=== PATIENT | male | born 1980 | race Caucasian/White ===

== ENCOUNTER 2018-04-25 09:55 | Inpatient (IN) ==
[2018-04-25] MEDS ORDERED: QUELICIN ONE (09:57)
--- NOTE | 2018-04-25 10:05 | PROVIDER DOCUMENTATION ---
HPI-General Adult - General Stated Complaint: UNRESPONSIVE Time Seen by Provider: 04/25/18 09:59 Source: patient Allergies/Adverse Reactions: Patient Allergies Allergy/AdvReac Type Severity Reaction Status Date / Time No Known Allergies Allergy Verified 02/11/18 02:33 Home Medications: Home Medication List Medication Instructions Recorded Confirmed Last Taken Type Folic Acid 1 mg PO DAILY 02/11/18 02/11/18 02/10/18 08:00 History Furosemide [Lasix] 40 mg PO DAILY 02/11/18 02/11/18 02/10/18 07:00 History Nadolol 20 mg PO DAILY 02/11/18 02/11/18 02/10/18 08:00 History Spironolactone 50 mg PO DAILY 02/11/18 02/11/18 02/10/18 08:00 History Thiamine HCl 100 mg PO DAILY 02/11/18 02/11/18 02/10/18 08:00 History Cephalexin [Keflex] 500 mg PO Q8H #30 cap 02/25/18 Unknown Rx Lactulose 30 ml PO TID udc 02/25/18 Unknown Rx Past History - Adult - PAST MEDICAL HISTORY-ADULT Major Childhood Illnesses: reports: denies history Cardiovascular: reports: denies history Respiratory: reports: denies history Gastrointestinal: reports: hepatitis (C) Obstetrical/Gynecological: reports: denies history Genitourinary: reports: denies history Musculoskeletal: reports: denies history Neurological: reports: denies history Endocrine/Immune: reports: denies history Other Conditions: reports: denies history - PRIOR SURGERIES/PROCEDURES Surgical/Procedure History: reports: reviewed, not pertinent - IMMUNIZATION STATUS Childhood Immunizations: See Nurse Assessment Flu Vaccine: See Nurse Assessment - FAMILY HISTORY Family History: reviewed, not pertinent Progress - PLAN OF CARE/RESULTS Progress/Plan/Lab Results: Orders Category Date Time Status ABG [RESP] Stat Lab 04/25/18 10:01 Ordered ALCOHOL BLOOD Stat Lab 04/25/18 10:01 Uncollected AMMONIA [CHEM] Stat Lab 04/25/18 10:00 Uncollected CBC WITH ELECTRONIC DIFF [HEME] Stat Lab 04/25/18 10:00 Uncollected CK PROFILE [SP CHEM] Stat Lab 04/25/18 10:01 Uncollected CMP [COMPREHENSIVE METABOLIC PANEL] [CHEM] Stat Lab 04/25/18 10:00 Uncollected TROPONIN T Stat Lab 04/25/18 10:02 Uncollected UA [URINALYSIS W/POSS RFLX CULT] [URINALYSIS] Stat Lab 04/25/18 10:01 Uncollected URINE DRUG SCREEN Stat Lab 04/25/18 10:00 Uncollected
[2018-04-25] MEDS ORDERED: NS 1,000 ML IV ONE ×3 (10:17→12:05)
[2018-04-25 10:33] LABS: BASO# 0.03 X1000 (0.0-0.2); BASO% 0.6 % (0.0-0.8); EOS% 1.9 % (0.0-10.0); HEMATOCRIT 17.7 % (42.0-52.0); HEMOGLOBIN 5.6 g/dL (14.0-18.0); IMM GRAN# 0.04 X1000 (0.0-0.04); IMM GRAN% 0.8 % (0.0-0.5); LYMPH# 0.92 X1000 (1.2-3.4); LYMPH% 17.7 % (20.5-51.1); MCH 37.8 PG (27-31); MCHC 31.6 g/dL (33-37); MCV 119.6 FL (81-99); MONO# 0.51 X1000 (0.11-0.59); MONO% 9.8 % (1.7-9.3); NEUT# 3.61 X1000 (1.4-6.5); NEUT% 69.2 % (42.2-75.2); PLT 74 X1000 (130-400); RBC 1.48 XMIL (4.7-6.1); RDW 13.9 % (11.5-14.5); WBC 5.21 X1000 (4.8-10.8)
[2018-04-25 10:36] LABS: ALLEN TEST NO; BLOOD TYPE ARTERIAL; HCO3-(ACT) 20.3 mmoll (20.0-26.0); METHB 1.4 % (0.0-1.5); O2(CT) 9.1 mL/dL (15.0-23.0); O2HB 97.2 % (95.0-99.0); PCO2(98.6) 25 mmHg (35-45); PO2(98.6) 229 mmHg (60-100); SAMPLE BLOOD; SAO2 102.1 % (95.0-100.0); SRATE 16 BPM; THB 6.2 g/dL (11.5-17.4); TVOL 550 mL; pH(98.6) 7.45 (7.35-7.45)
[2018-04-25 10:37] LABS: MODALITY VENTILATOR
[2018-04-25 10:40] LABS: ALB/GLOB RATIO 0.8; ALBUMIN 2.5 g/dL (3.5-5.0); CALCIUM 8.4 mg/dL (8.8-10.2); CREATININE 2.4 mg/dL (0.7-1.2); TOTAL BILIRUBIN 18.26 mg/dL (0.20-1.00); TOTAL PROTEIN 5.5 g/dL (6.3-8.3)
[2018-04-25] MEDS ORDERED: ZOSYN 3.375 GM in NS 50 ML IV ONE (10:43)
[2018-04-25] MEDS ORDERED: VANCOMYCIN 1 GM/NS 1 GM/250 ML IVPB IV ONE (10:43)
[2018-04-25 10:48] LABS: BILIRUBIN URINE SMALL (NEGATIVE); BLOOD URINE TRACE (NEGATIVE); COLOR YELLOW; GLUCOSE URINE NEGATIVE (NEGATIVE); KETONE URINE NEGATIVE (NEGATIVE); LEUKOCYTES URINE NEGATIVE (NEGATIVE); NITRITE URINE NEGATIVE (NEGATIVE); PH URINE 5.5; PROTEIN URINE NEGATIVE (NEGATIVE); SP GRAVITY URINE 1.011; TURBIDITY URINE CLEAR (CLEAR); UR EPITHELIAL CELLS <10 /HPF (<10); URINE BACTERIA NEGATIVE /HPF; URINE RBC <10 /HPF (<10); URINE WBC <10 /HPF (<10); UROBILINOGEN URINE 8 mg/dL (NORMAL)
[2018-04-25 10:55] LABS: URINE SOURCE CATH
--- NOTE | 2018-04-25 11:06 | Diag Imaging Result Doc PS360 ---
EXAM: CHEST-PORTABLE 04/25/2018 HISTORY: intubated patient TECHNIQUE: Portable chest and abdomen for NG tube placement and endotracheal tube placement. COMMENT: The endotracheal tube tip is at the thoracic inlet and the NG tube tip is in the distal stomach. There is some atelectasis in the right lower lobe. There is gaseous dilatation of multiple small bowel loops as well as a fairly large amount of stool seen in the visualized portion of the colon. IMPRESSION: Endotracheal and NG tubes in appropriate locations. Electronically signed by Fred Kirkpatrick 04/25/2018 11:04 AM
[2018-04-25] MEDS ORDERED: PROTONIX IV ONE (11:18)
[2018-04-25] MEDS ORDERED: SANDOSTATIN IV ONE (11:18)
[2018-04-25 11:24] LABS: CK INDEX 0.6 (0.0-2.5); CK-MB 2.3 ng/mL (0.0-5.0)
[2018-04-25] MEDS: DIPRIVAN 1% 1,000 MG/100 ML BOTTLE IV SCH ×2 (11:27→19:59)
[2018-04-25 11:56] LABS: INR 2.63
[2018-04-25 11:57] LABS: PTT 60.6 Seconds (22.3-41.8)
[2018-04-25 11:58] LABS: UR AMPHETAMINES QUAL NONE DETECTED (NONE DETECT); UR BARBITUATES QUAL NONE DETECTED (NONE DETECT); UR BENZODIAZEPIN QUAL NONE DETECTED (NONE DETECT); UR CANNABINOIDS QUAL NONE DETECTED (NONE DETECT); UR COCAINE QUAL NONE DETECTED (NONE DETECT); UR METHADONE QUAL NONE DETECTED (NONE DETECT); UR OPIATES QUAL NONE DETECTED (NONE DETECT); UR OXYCODONE QUAL NONE DETECTED (NONE DETECT); UR PCP QUAL NONE DETECTED (NONE DETECT)
--- NOTE | 2018-04-25 12:01 | Diag Imaging Result Doc PS360 ---
EXAM: CT HEAD W/O CONTRAST 04/25/2018 HISTORY: unresponsive TECHNIQUE: This exam was performed using automated exposure control, adjustment of mA or kV according to patient size, and/or use of iterative reconstruction technique. COMMENT: There is no evidence of mass effect, bleed, abnormal extra-axial fluid collection, or hydrocephalus. The visualized paranasal sinuses are clear. The calvarium is intact. Compared to the previous examination of 02/11/2018 there has been no significant change in the appearance the brain. IMPRESSION: No evidence of acute intracranial disease. Electronically signed by Fred Kirkpatrick 04/25/2018 11:59 AM
[2018-04-25] MEDS ORDERED: LACTULOSE NG ONE (12:04)
[2018-04-25] MEDS ORDERED: D50W SYRINGE IV PRN (12:11)
[2018-04-25] MEDS ORDERED: XIFAXAN NG SCH (12:15)
[2018-04-25] MEDS ORDERED: VANCOMYCIN IV PER PHARMACY MISC SCH (12:15)
[2018-04-25] MEDS ORDERED: PROTONIX ONE (12:18)
[2018-04-25] MEDS ORDERED: LACTULOSE PO SCH (13:00)
[2018-04-25 13:15] LABS: LYMPHS 22 % (21-51); MONO 10 % (1-9); SEGS 68 % (42-75)
[2018-04-25 13:16] LABS: ANISOCYTOSIS 2+; HYPOCHROM 1+; POIKILOCYTOSIS 2+
--- NOTE | 2018-04-25 13:17 | HISTORY AND PHYSICAL ---
HISTORY OF PRESENT ILLNESS: This is a 37-year-old, who was found unresponsive. He lives with his mother. He was last in the hospital on 02/11/2018 to 02/26/2018. This is a 37 year old, who has recently been admitted to the hospital on 12/10/2017 to 12/15/2017 and then again on 02/11/2018 to I think 02/26/2018. The last time he was found unresponsive, as well as being found unresponsive at this time. He was brought to the emergency room where he had to be intubated in respiratory failure. He has been treated with cirrhosis of the liver, alcoholic hepatitis, upper gastrointestinal bleeding secondary to variceal bleeds. He has had banding x4, hepatitis C, jaundice and electrolyte abnormalities. Since last admission, his mother thinks he has lost about 25 pounds, but he was eating. He was a no code during that admission. They did not expect him to make it, but then he has expressed his wishes to be made a no-code on this admission. His mother would like to make him a DNR. He was doing okay yesterday. He has not felt good for the last couple weeks, so he apparently was skipping some of his medication trying to figure out which one was making him feel bad, but she did not report any history of fever, chills or chest pain, GI bleeding or dark stools. Did notice any increased swelling in his belly or in his extremities. Came to the emergency room where he was intubated. Did do a CT of his head. Did not see any sign of bleed. Once again reviewed. PAST MEDICAL HISTORY: 1. History of upper gastrointestinal bleeding secondary to variceal bleeding. He had banding in December of 2017; apparently has had this four different times. 2. Alcoholic hepatitis. 3. Cirrhosis of the liver. 4. Hepatitis C. 5. Anemia. 6. Poor medical compliance. PAST SURGICAL HISTORY: Had wisdom teeth extracted. SOCIAL HISTORY: Patient has long history of long-standing alcohol dependence. His mother reports that he has not drank in 2 years, reports that before that occasional marijuana, and he was positive on his drug screen and past admissions. FAMILY HISTORY: Mother did not describe any significant cardiac or renal or medical issues. ALLERGIES: No known drug allergies. PRESENT MEDICATIONS: I believe he is on: 1. Folic acid 1 mg a day. 2. Lasix 40 mg a day. 3. Nadolol 20 mg a day. 4. Spironolactone 50 mg a day. 5. Thiamine 100 mg daily. REVIEW OF SYSTEMS: General: Really not obtained from patient, but the mother. HEENT: Did not describe any change in vision or hearing acuity. Respiratory: No increased work of breathing or dyspnea, orthopnea that she had noted. Cardiovascular: No chest pain or tachy palpitation. Gastrointestinal and Genitourinary: No gross hematuria, dysuria. No hematemesis. Endocrinologic and Hematologic: No significant history. PHYSICAL EXAMINATION: VITAL SIGNS: Temperature 98.2 degrees, pulse 95, respirations 14, blood pressure 130/64. EYES: Pupils are equal and round. LUNGS: Clear in all lung ellis. CARDIOVASCULAR EXAM: Regular rhythm and rate without murmur or S3. He is intubated, unresponsive. His pupils are sluggish, but reactive; they are about 3 mm and equal. No distended neck veins. ABDOMEN: Soft. There is stria on the lower sides of his abdomen. EXTREMITIES: No pedal edema. NEUROLOGIC: He is sedated at the present time. LABS: White count 5210, hematocrit is 17, hemoglobin 5.6, platelet count 74,000. Sodium 131, potassium 5.0, chloride 97, BUN 39, creatinine 2.4. Ammonia level 223. PT is 30, PTT is 60. Albumin 2.5. Urine drug screen was negative for opiates, oxycodone, methadone, barbiturates, phencyclidine, amphetamines, benzodiazepines, cocaine, cannabinoids. Ethanol level (none detected). Urinalysis unremarkable. Blood gases: The pH is 7.45, pCO2 25, PO2 is 229, O2 saturations 100%; this is on the ventilator with assist control of 16, FiO2 60%, tidal volume 550, PEEP was 5. X-RAYS: Chest x-ray: Endotracheal and nasogastric tube in appropriate locations, otherwise unremarkable. There is some atelectasis in the right lower lobe. Gaseous distention of multiple small bowel loops. Large amount of stool seen in the visualized portion of the colon. CT of the head with no evidence of acute intracranial bleed. ASSESSMENT/PLAN: Unresponsive, lethargic. Ammonia level is high. No evidence for infection. His abdomen appears soft, but he is sedated. We will cover him with some empiric antibiotics for possible acute or subacute peritonitis and sepsis. He has underlying alcoholic cirrhosis. He has had significant portal hypertension with banding in the past. No sign of bleeding at this time, but hemoglobin and hematocrit very low. So, we will give him 2 units of packed red blood cells. We will give him some fresh frozen because his prothrombin time is elevated. Significant liver dysfunction based on his pro time and his albumin. Prognosis is very poor. Mother understands. He is to be made a do not resuscitate. We will ask Dr. Manrique and Gastroenterology to help follow along. We will give him some lactulose in the nasogastric tube, Rifaximin 550 mg twice a day in the tube. We will run normal saline 85 mL an hour. We will start him on some octreotide that will be run at 10 mL an hour. Concentration is 50 mcg/mL, so that will be 500 mcg every hour. cc: Gera Woodward MD
--- NOTE | 2018-04-25 13:33 | PROVIDER DOCUMENTATION ---
This chart was entered by Chano Calvert Scribe, acting as scribe for Bautista Batres MD. HPI-Critical Care - General Chief Complaint: Unresponsive Stated Complaint: UNRESPONSIVE Time Seen by Provider: 04/25/18 09:59 Patient arrived via EMS?: Yes Source: patient, [facility] ([facility] Allergies/Adverse Reactions: Allergies Allergy/AdvReac Type Severity Reaction Status Date / Time No Known Allergies Allergy Verified 02/11/18 02:33 Home Medications: Home Medication List Medication Instructions Recorded Confirmed Last Taken Type Folic Acid 1 mg PO DAILY 02/11/18 02/11/18 02/10/18 08:00 History Furosemide [Lasix] 40 mg PO DAILY 02/11/18 02/11/18 02/10/18 07:00 History Nadolol 20 mg PO DAILY 02/11/18 02/11/18 02/10/18 08:00 History Spironolactone 50 mg PO DAILY 02/11/18 02/11/18 02/10/18 08:00 History Thiamine HCl 100 mg PO DAILY 02/11/18 02/11/18 02/10/18 08:00 History Cephalexin [Keflex] 500 mg PO Q8H #30 cap 02/25/18 Unknown Rx Lactulose 30 ml PO TID udc 02/25/18 Unknown Rx - History of Present Illness-Critical Care Nature of Presenting Problem: 37 yom [facility] by [facility] with cc of unresponsive since 0430 this am per family members. 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 Pt family members told EMS that he was a DNR but there is no paperwork. EMS gave pt 1mg narcan with no relief and they were unable to obtain a BP they report he was postictal on finding him. Hx of Cirrhosis of the Liver pt is jaundice on arrival. Review of Systems - Adult - REVIEW OF SYSTEMS - ADULT ROS:: unobtainable per condition Constitutional: reports: see HPI, other (unresponsive) Neurological: reports: see HPI, other (unresponsive) Past History - Adult - PAST MEDICAL HISTORY-ADULT Review of Records: reports: Old Records Reviewed, Nursing Assessment Review, Medications Reviewed Gastrointestinal: reports: hepatitis (C) Other Conditions: reports: denies history - PRIOR SURGERIES/PROCEDURES Surgical/Procedure History: reports: reviewed, not pertinent - IMMUNIZATION STATUS Childhood Immunizations: See Nurse Assessment Flu Vaccine: See Nurse Assessment - FAMILY HISTORY Family History: reviewed, not pertinent Physical Exam-General - PHYSICAL EXAM-ADULT Initial Vital Signs Reviewed: Yes (Pt BP was 129/56 HR 72 O2 sat with 15lpm high flow oxygen was 100) - CONSTITUTIONAL General Appearance: severe distress, other (unresponsive). negative: appears well, alert - EYES Eyes: scleral icterus, other (Doll eyes and no cranial reflexes). negative: PERRL/EOMI - HEAD, EARS, NOSE, MOUTH & THROAT HENMT: other (Jaws clenched) - NECK Neck: supple. negative: trachial deviation, tender lateral, tender midline, thyromegaly - RESPIRATORY Respiratory: decreased breath sounds - CARDIOVASCULAR Cardiovascular: normal peripheral pulses, regular rate, rhythm - GASTROINTESTINAL (ABDOMEN) Abdominal Exam: normal bowel sounds, soft, hernia (right inguinal, reducible) - GENITOURINARY Rectal Exam: normal rectal tone, black stool - MUSCULOSKELETAL Extremity: no pedal edema. negative: slow capillary refill, swelling Peripheral Pulses: radial (R): 2+, radial (L): 2+, carotid (R): 2+, carotid (L) : 2+, femoral (R): 2+, femoral (L): 2+, dorsalis-pedis (R): 2+, dorsalis-pedis ( L): 2+ DTR: ankle (R): 2+, ankle (L): 2+ - SKIN Integumentary: ecchymosis (bilateral knees), jaundice. negative: normal color, normal turgor, warm/dry (Cold to touch) - NEUROLOGIC Neurologic: other (unresponsive). negative: grossly normal - PSYCHIATRIC Psych/Mental Status: other (unresponsive) Progress - PLAN OF CARE/RESULTS Progress/Plan/Lab Results: Vital Signs - 8 hr 04/25/18 10:02 04/25/18 10:17 04/25/18 10:20 Temperature 92.8 F L Pulse Rate 86 72 74 Respiratory Rate 16 16 16 Blood Pressure 129/56 137/74 O2 Sat by Pulse Oximetry 100 100 04/25/18 10:22 04/25/18 10:30 04/25/18 10:35 Temperature Pulse Rate 77 83 85 Respiratory Rate 16 13 Blood Pressure 128/79 103/82 O2 Sat by Pulse Oximetry 100 100 04/25/18 10:36 04/25/18 10:38 04/25/18 10:40 Temperature Pulse Rate 87 86 86 Respiratory Rate 20 Blood Pressure 104/50 82/65 O2 Sat by Pulse Oximetry 100 100 04/25/18 10:41 04/25/18 10:43 04/25/18 10:48 Temperature Pulse Rate 114 H 87 69 Respiratory Rate Blood Pressure 72/56 123/81 96/79 O2 Sat by Pulse Oximetry 04/25/18 10:50 04/25/18 10:52 04/25/18 10:58 Temperature Pulse Rate 74 85 86 Respiratory Rate 14 Blood Pressure 113/69 73/68 O2 Sat by Pulse Oximetry 100 100 04/25/18 11:00 04/25/18 11:01 04/25/18 11:03 Temperature Pulse Rate 86 88 87 Respiratory Rate 14 Blood Pressure 116/64 117/73 O2 Sat by Pulse Oximetry 100 100 100 04/25/18 11:08 04/25/18 11:10 04/25/18 11:12 Temperature Pulse Rate 89 87 93 H Respiratory Rate 17 17 24 Blood Pressure 87/58 116/70 O2 Sat by Pulse Oximetry 100 100 97 04/25/18 11:55 04/25/18 11:56 04/25/18 11:58 Temperature Pulse Rate 89 92 H 93 H Respiratory Rate 13 14 13 Blood Pressure 128/94 100/52 O2 Sat by Pulse Oximetry 100 100 04/25/18 12:00 04/25/18 12:02 04/25/18 12:05 Temperature Pulse Rate 94 H 95 H 92 H Respiratory Rate 15 14 13 Blood Pressure 120/78 110/56 O2 Sat by Pulse Oximetry 100 100 100 04/25/18 12:08 04/25/18 12:09 04/25/18 12:10 Temperature Pulse Rate 95 H 94 H 89 Respiratory Rate 14 14 14 Blood Pressure 130/64 O2 Sat by Pulse Oximetry 100 100 100 04/25/18 12:12 04/25/18 12:13 04/25/18 12:16 Temperature Pulse Rate Respiratory Rate Blood Pressure 79/68 83/63 96/63 O2 Sat by Pulse Oximetry 100 100 100 04/25/18 12:17 04/25/18 12:20 04/25/18 12:22 Temperature Pulse Rate 95 H Respiratory Rate 13 Blood Pressure 99/65 119/65 O2 Sat by Pulse Oximetry 100 100 100 04/25/18 12:27 04/25/18 12:30 04/25/18 12:32 Temperature Pulse Rate 98 H 98 H 99 H Respiratory Rate 13 12 14 Blood Pressure 109/69 105/56 O2 Sat by Pulse Oximetry 100 100 100 04/25/18 12:34 04/25/18 12:37 04/25/18 12:40 Temperature Pulse Rate 99 H 97 H 100 H Respiratory Rate 12 13 15 Blood Pressure 107/59 106/62 O2 Sat by Pulse Oximetry 100 100 100 Laboratory Results - last 24 hr 04/25/18 04/25/18 04/25/18 10:00 10:00 10:00 WBC 5.21 RBC 1.48 L Hgb 5.6 L* Hct 17.7 L MCV 119.6 H MCH 37.8 H MCHC 31.6 L RDW Std Deviation 13.9 Plt Count 74 L MPV 10.0 Immature Gran % (Auto) 0.8 H Neut % (Auto) 69.2 Lymph % (Auto) 17.7 L [place] % (Auto) 9.8 H Eos % (Auto) 1.9 Baso % (Auto) 0.6 Immature Gran # (Auto) 0.04 Neut # (Auto) 3.61 Lymph # (Auto) 0.92 L [place] # (Auto) 0.51 Eos # (Auto) 0.10 Baso # (Auto) 0.03 Segmented Neutrophils 68 Lymphocytes 22 Monocytes 10 H Hypochromia 1+ Poikilocytosis 2+ Anisocytosis 2+ Macrocytosis 3+ PT INR PTT (Actin FS) Specimen Type Sample Site pH pCO2 pO2 HCO3 Base Excess Oxyhemoglobin ABG O2 Sat (Calculated) ABG O2 Saturation ABG Carboxyhemoglobin ABG Methemoglobin Gera Test A-a O2 Difference Total Hemoglobin Lactate Blood Gas Modality Vent Mode Spontaneous Rate FiO2 % Tidal Volume PEEP Sodium 131 L Potassium 5.0 Chloride 97 L Carbon Dioxide 18 L Anion Gap 16 BUN 39 H Creatinine 2.4 H Estimated GFR/1.73 m2 31 BUN/Creatinine Ratio 16 Glucose 77 POC Glucose Calculated Osmolality 271 Calcium 8.4 L Magnesium Total Bilirubin 18.26 H AST 63 H ALT 35 Alkaline Phosphatase 133 H Ammonia Creatine Kinase 402 H Creatine Kinase Index 0.6 CK-MB (CK-2) 2.30 Troponin T Total Protein 5.5 L Albumin 2.5 L Globulin 3.0 Albumin/Globulin Ratio 0.8 Plasma Lactate Urine Source Urine Color Urine Turbidity Urine pH Ur Specific [place] Urine Protein Ur Glucose (Stick) Ur Ketones (Stick) Urine Blood Urine Nitrite Urine Bilirubin Urobilinogen Dipstick Urine Leukocytes Urine WBC (Auto) Urine RBC (Auto) U Epithel Cells (Auto) Urine Bacteria (Auto) Urine Opiates Screen Ur Oxycodone Screen Ur Methadone, Qual Ur Barbiturates Screen Ur Phencyclidine Scrn Ur Amphetamines Screen U Benzodiazepines Scrn Urine Cocaine Screen U Cannabinoids Screen Plasma/Serum Ethyl Alc Blood Type Antibody Screen Crossmatch 04/25/18 04/25/18 04/25/18 10:00 10:00 10:00 WBC RBC Hgb Hct MCV MCH MCHC RDW Std Deviation Plt Count MPV Immature Gran % (Auto) Neut % (Auto) Lymph % (Auto) [place] % (Auto) Eos % (Auto) Baso % (Auto) Immature Gran # (Auto) Neut # (Auto) Lymph # (Auto) [place] # (Auto) Eos # (Auto) Baso # (Auto) Segmented Neutrophils Lymphocytes Monocytes Hypochromia Poikilocytosis Anisocytosis Macrocytosis PT INR PTT (Actin FS) Specimen Type Sample Site pH pCO2 pO2 HCO3 Base Excess Oxyhemoglobin ABG O2 Sat (Calculated) ABG O2 Saturation ABG Carboxyhemoglobin ABG Methemoglobin Gera Test A-a O2 Difference Total Hemoglobin Lactate Blood Gas Modality Vent Mode Spontaneous Rate FiO2 % Tidal Volume PEEP Sodium Potassium Chloride Carbon Dioxide Anion Gap BUN Creatinine Estimated GFR/1.73 m2 BUN/Creatinine Ratio Glucose POC Glucose Calculated Osmolality Calcium Magnesium Total Bilirubin AST ALT Alkaline Phosphatase Ammonia Creatine Kinase Creatine Kinase Index CK-MB (CK-2) Troponin T < 0.010 Total Protein Albumin Globulin Albumin/Globulin Ratio Plasma Lactate 5.2 H Urine Source Urine Color Urine Turbidity Urine pH Ur Specific [place] Urine Protein Ur Glucose (Stick) Ur Ketones (Stick) Urine Blood Urine Nitrite Urine Bilirubin Urobilinogen Dipstick Urine Leukocytes Urine WBC (Auto) Urine RBC (Auto) U Epithel Cells (Auto) Urine Bacteria (Auto) Urine Opiates Screen Ur Oxycodone Screen Ur Methadone, Qual Ur Barbiturates Screen Ur Phencyclidine Scrn Ur Amphetamines Screen U Benzodiazepines Scrn Urine Cocaine Screen U Cannabinoids Screen Plasma/Serum Ethyl Alc Blood Type Antibody Screen Crossmatch 04/25/18 04/25/18 04/25/18 10:00 10:00 10:18 WBC RBC Hgb Hct MCV MCH MCHC RDW Std Deviation Plt Count MPV Immature Gran % (Auto) Neut % (Auto) Lymph % (Auto) [place] % (Auto) Eos % (Auto) Baso % (Auto) Immature Gran # (Auto) Neut # (Auto) Lymph # (Auto) [place] # (Auto) Eos # (Auto) Baso # (Auto) Segmented Neutrophils Lymphocytes Monocytes Hypochromia Poikilocytosis Anisocytosis Macrocytosis PT 30.0 H INR 2.63 PTT (Actin FS) 60.6 H Specimen Type Sample Site pH pCO2 pO2 HCO3 Base Excess Oxyhemoglobin ABG O2 Sat (Calculated) ABG O2 Saturation ABG Carboxyhemoglobin ABG Methemoglobin Gera Test A-a O2 Difference Total Hemoglobin Lactate Blood Gas Modality Vent Mode Spontaneous Rate FiO2 % Tidal Volume PEEP Sodium Potassium Chloride Carbon Dioxide Anion Gap BUN Creatinine Estimated GFR/1.73 m2 BUN/Creatinine Ratio Glucose POC Glucose Calculated Osmolality Calcium Magnesium 2.3 Total Bilirubin AST ALT Alkaline Phosphatase Ammonia Creatine Kinase Creatine Kinase Index CK-MB (CK-2) Troponin T Total Protein Albumin Globulin Albumin/Globulin Ratio Plasma Lactate Urine Source Urine Color Urine Turbidity Urine pH Ur Specific [place] Urine Protein Ur Glucose (Stick) Ur Ketones (Stick) Urine Blood Urine Nitrite Urine Bilirubin Urobilinogen Dipstick Urine Leukocytes Urine WBC (Auto) Urine RBC (Auto) U Epithel Cells (Auto) Urine Bacteria (Auto) Urine Opiates Screen NONE DETECTED Ur Oxycodone Screen NONE DETECTED Ur Methadone, Qual NONE DETECTED Ur Barbiturates Screen NONE DETECTED Ur Phencyclidine Scrn NONE DETECTED Ur Amphetamines Screen NONE DETECTED U Benzodiazepines Scrn NONE DETECTED Urine Cocaine Screen NONE DETECTED U Cannabinoids Screen NONE DETECTED Plasma/Serum Ethyl Alc Blood Type Antibody Screen Crossmatch 04/25/18 04/25/18 04/25/18 10:18 10:24 10:26 WBC RBC Hgb Hct MCV MCH MCHC RDW Std Deviation Plt Count MPV Immature Gran % (Auto) Neut % (Auto) Lymph % (Auto) [place] % (Auto) Eos % (Auto) Baso % (Auto) Immature Gran # (Auto) Neut # (Auto) Lymph # (Auto) [place] # (Auto) Eos # (Auto) Baso # (Auto) Segmented Neutrophils Lymphocytes Monocytes Hypochromia Poikilocytosis Anisocytosis Macrocytosis PT INR PTT (Actin FS) Specimen Type ARTERIAL Sample Site L FEMORAL pH 7.45 pCO2 25 L pO2 229 H HCO3 20.3 Base Excess -6.0 L Oxyhemoglobin 97.2 ABG O2 Sat (Calculated) 9.1 L ABG O2 Saturation 102.1 H ABG Carboxyhemoglobin 3.40 H ABG Methemoglobin 1.4 Gera Test NO A-a O2 Difference 168.0 Total Hemoglobin 6.2 L Lactate 4.40 H Blood Gas Modality VENTILATOR Vent Mode A/C Spontaneous Rate 16 FiO2 % 60.0 Tidal Volume 550 PEEP 5.0 Sodium Potassium Chloride Carbon Dioxide Anion Gap BUN Creatinine Estimated GFR/1.73 m2 BUN/Creatinine Ratio Glucose POC Glucose 93 Calculated Osmolality Calcium Magnesium Total Bilirubin AST ALT Alkaline Phosphatase Ammonia Creatine Kinase Creatine Kinase Index CK-MB (CK-2) Troponin T Total Protein Albumin Globulin Albumin/Globulin Ratio Plasma Lactate Urine Source CATH Urine Color YELLOW Urine Turbidity CLEAR Urine pH 5.5 Ur Specific [place] 1.011 Urine Protein NEGATIVE Ur Glucose (Stick) NEGATIVE Ur Ketones (Stick) NEGATIVE Urine Blood TRACE A Urine Nitrite NEGATIVE Urine Bilirubin SMALL A Urobilinogen Dipstick 8 A Urine Leukocytes NEGATIVE Urine WBC (Auto) <10 Urine RBC (Auto) <10 U Epithel Cells (Auto) <10 Urine Bacteria (Auto) NEGATIVE Urine Opiates Screen Ur Oxycodone Screen Ur Methadone, Qual Ur Barbiturates Screen Ur Phencyclidine Scrn Ur Amphetamines Screen U Benzodiazepines Scrn Urine Cocaine Screen U Cannabinoids Screen Plasma/Serum Ethyl Alc Blood Type Antibody Screen Crossmatch 04/25/18 04/25/18 11:00 12:02 WBC RBC Hgb Hct MCV MCH MCHC RDW Std Deviation Plt Count MPV Immature Gran % (Auto) Neut % (Auto) Lymph % (Auto) [place] % (Auto) Eos % (Auto) Baso % (Auto) Immature Gran # (Auto) Neut # (Auto) Lymph # (Auto) [place] # (Auto) Eos # (Auto) Baso # (Auto) Segmented Neutrophils Lymphocytes Monocytes Hypochromia Poikilocytosis Anisocytosis Macrocytosis PT INR PTT (Actin FS) Specimen Type Sample Site pH pCO2 pO2 HCO3 Base Excess Oxyhemoglobin ABG O2 Sat (Calculated) ABG O2 Saturation ABG Carboxyhemoglobin ABG Methemoglobin Gera Test A-a O2 Difference Total Hemoglobin Lactate Blood Gas Modality Vent Mode Spontaneous Rate FiO2 % Tidal Volume PEEP Sodium Potassium Chloride Carbon Dioxide Anion Gap BUN Creatinine Estimated GFR/1.73 m2 BUN/Creatinine Ratio Glucose POC Glucose Calculated Osmolality Calcium Magnesium Total Bilirubin AST ALT Alkaline Phosphatase Ammonia 223 H Creatine Kinase Creatine Kinase Index CK-MB (CK-2) Troponin T Total Protein Albumin Globulin Albumin/Globulin Ratio Plasma Lactate Urine Source Urine Color Urine Turbidity Urine pH Ur Specific [place] Urine Protein Ur Glucose (Stick) Ur Ketones (Stick) Urine Blood Urine Nitrite Urine Bilirubin Urobilinogen Dipstick Urine Leukocytes Urine WBC (Auto) Urine RBC (Auto) U Epithel Cells (Auto) Urine Bacteria (Auto) Urine Opiates Screen Ur Oxycodone Screen Ur Methadone, Qual Ur Barbiturates Screen Ur Phencyclidine Scrn Ur Amphetamines Screen U Benzodiazepines Scrn Urine Cocaine Screen U Cannabinoids Screen Plasma/Serum Ethyl Alc Blood Type A POSITIVE Antibody Screen NEGATIVE Crossmatch See Detail Orders Category Date Time Status Admit - [facility] Routine AdmDCTranf 04/25/18 12:08 Active FSBS/Accucheck Result Q4HR Care 04/25/18 12:08 [address] [place] Insertion ORDERED Care 04/25/18 10:17 Active Nursing- MD Consult Request ROUTINE Care 04/25/18 12:08 Active Nursing- MD Consult Request ROUTINE Care 04/25/18 12:13 Active Resuscitation Status Routine Care 04/25/18 12:37 Ordered Transfuse .Give-Transfuse Care 04/25/18 10:40 Active Transfuse .Give-Transfuse Care 04/25/18 12:11 Active MD [Physician/Provider Consults] Routine Cons 04/25/18 12:13 Ordered Physician/Provider Consults Routine Cons 04/25/18 12:08 Ordered NPO Diet 04/25/18 12:09 Active CHEST-PORTABLE [RAD] Stat Exams 04/25/18 10:[address] HEAD W/O CONTRAST [CT] Stat Exams 04/25/18 11:05 Completed ABG [RESP] Routine Lab 04/25/18 10:26 Completed ALCOHOL BLOOD Stat Lab 04/25/18 10:00 Completed AMMONIA [CHEM] Q24H Lab 04/26/18 06:00 Ordered AMMONIA [CHEM] Q24H Lab 04/27/18 06:00 Ordered AMMONIA [CHEM] Q24H Lab 04/28/18 06:00 Ordered AMMONIA [CHEM] Q24H Lab 04/29/18 06:00 Ordered AMMONIA [CHEM] Q24H Lab 04/30/18 06:00 Ordered AMMONIA [CHEM] Q24H Lab 05/01/18 06:00 Ordered AMMONIA [CHEM] Stat Lab 04/25/18 10:00 Completed AMMONIA [CHEM] Stat Lab 04/25/18 11:00 Completed BLOOD CULTURE [BLDCUL] Stat Lab 04/25/18 10:07 Results CBC WITH ELECTRONIC DIFF [HEME] Stat Lab 04/25/18 10:00 Completed CK PROFILE [SP CHEM] Stat Lab 04/25/18 10:00 Completed CMP [COMPREHENSIVE METABOLIC PANEL] [CHEM] Stat Lab 04/25/18 10:00 Completed FFP [FRESH FROZEN PLASMA] [BBK] Stat Lab 04/25/18 12:11 Uncollected HGB AND HCT [HEME] Lab 04/25/18 18:00 Uncollected HGB AND HCT [HEME] Lab 04/26/18 00:00 Uncollected HGB AND HCT [HEME] Lab 04/26/18 06:00 Uncollected HGB AND HCT [HEME] Lab 04/26/18 12:00 Uncollected HGB AND HCT [HEME] Lab 04/26/18 18:00 Uncollected LACTATE, PLASMA [CHEM] Stat Lab 04/25/18 10:00 Completed LRPC (RED CELLS) [BBK] Stat Lab 04/25/18 12:02 Results MAGNESIUM [CHEM] Stat Lab 04/25/18 10:00 Completed PT [PROTIME WITH INR] [COAG] Stat Lab 04/25/18 10:00 Completed PTT [COAG] Stat Lab 04/25/18 10:00 Completed TROPONIN T Stat Lab 04/25/18 10:00 Completed TYPE & SCREEN [BBK] Stat Lab 04/25/18 12:02 Results UA [URINALYSIS W/POSS RFLX CULT] [URINALYSIS] Stat Lab 04/25/18 10:18 Completed UR CREAT RANDOM [URCHEM] Stat Lab 04/25/18 12:17 Uncollected UR SODIUM [URCHEM] Stat Lab 04/25/18 12:17 Uncollected UR UREA NITROGEN RANDOM [URCHEM] Stat Lab 04/25/18 12:17 Uncollected URINE DRUG SCREEN Stat Lab 04/25/18 10:18 Completed 0.9% Sodium Chloride Inj [Ns] 1,000 ml Med 04/25/18 12:15 Active IV 85 mls/hr 0.9% Sodium Chloride Inj [Ns] 1,000 ml Med 04/25/18 10:17 Discontinued IV 999 mls/hr 0.9% Sodium Chloride Inj [Ns] 1,000 ml Med 04/25/18 10:44 Discontinued IV 999 mls/hr 0.9% Sodium Chloride Inj [Ns] 1,000 ml Med 04/25/18 12:05 Discontinued IV 999 mls/hr 0.9% Sodium Chloride Inj [Ns] 80 ml Med 04/25/18 13:00 Active Pantoprazole [Protonix] 80 mg IV 10 mls/hr Albuterol 2.5MG/Ipratrop 0.5MG [Duoneb (A & A)] Med 04/25/18 15:30 Active 3 ml INH RTQ4H Dextrose 5%-Water Inj [D5w] 100 ml Med 04/25/18 13:00 Active Octreotide Acetate [Sandostatin] 500 microgm IV 10 mls/hr Dextrose 50% Syringe [D50w Syringe] Med 04/25/18 12:11 Active 50 ml IV DIRECTED PRN PRN Lactulose Med 04/25/18 17:00 Active 30 ml NG TID Lactulose Med 04/25/18 13:00 Discontinued 30 ml PO TID Lactulose Med 04/25/18 12:04 Discontinued 60 ml NG NOW ONE Octreotide Acetate [Sandostatin] Med 04/25/18 11:18 Discontinued 50 microgm IV NOW ONE Ondansetron [Zofran] Med 04/25/18 12:08 Active 4 mg IV Q4H PRN PRN Pantoprazole [Protonix] Med 04/25/18 12:18 Discontinued 40 mg .ROUTE .STK-MED ONE Pantoprazole [Protonix] Med 04/28/18 13:00 Active 40 mg IV Q12H Pantoprazole [Protonix] Med 04/25/18 11:18 Discontinued 80 mg IV NOW ONE Pharmacy Order [Vancomycin IV Per Pharmacy] Med 04/25/18 12:15 Active 1 each MISC DIRECTED Piperacillin/Tazobactam [Zosyn] 2.25 gm Med 04/25/18 19:00 Active 0.9% Sodium Chloride Inj [Ns] 50 ml IV Q8H Piperacillin/Tazobactam [Zosyn] 3.375 gm Med 04/25/18 10:43 Discontinued 0.9% Sodium Chloride Inj [Ns] 50 ml IV NOW Propofol [Diprivan 1%] Med 04/25/18 11:00 Active 1,000 mg in 100 ml IV As Directed Rifaximin [Xifaxan] Med 04/25/18 12:15 Active 550 mg NG BID Vancomycin 1 gm/Ns Med 04/25/18 10:43 Discontinued 1 gm in 250 ml IV NOW Aerosol Treatments Routine Oth 04/25/18 12:11 Active Aerosol Treatments Stat Oth 04/25/18 12:11 Active EKG [EKG] Stat Ther 04/25/18 10:16 Ordered Transfer/Admit Order [TRANSFER] Routine Transfer 04/25/18 12:05 Ordered Nursing staff put Bear Samangger on pt. on 02/25/18 pt Hemoglobin was 7.6 today pt Hemoglobin is 5.6 Dr. Batres spoke with mother which reports that pt has liver failure and no other medical hx reports does take lactalose. Mother reports that if its up to her pt is a DNR but has no paperwork. reports if CPR has to be done that she does not want it done that she wants him to be a DNR. Mother reports pt fell off the couch this am and was talking out of his head and was shaking and shivering so she covered him up bc she was unable to help him up.Mother reports pt sees Dr. Giron and Dr. Valdez. DR. Batres explained that pt would need a blood transfusion and mother reports he has had them before as well. Pt is now starting to moan and wake up Dr. Batres ordered diprodine. ABX was also ordered. 1059: Hospitalist paiged 1132 Dr. Gurjit recinos 1207 Hospitalist paifacundo Result Diagrams: 04/25/18 10:00 04/25/18 10:00 - EKG 1 Time of EKG reading by physician:: 09:56 EKG Read and Signed by:: Dillon Ng EKG Interpretation (*Must complete 3 of following elements*): Abnormal (poss LAE , Prolonged QT) Rate: 70 Rhythm: nsr Sayner: normal ST Wave: non-specific ST changes - XRAY 1 XRAY: Bilateral XRAY Study: Chest Impression: Normal (Tubes in place, no pna per Dr. Batres) - CT/MRI 1 CT Study: Head Impression: Normal (IMPRESSION: No evidence of acute intracranial disease. Electronically signed by Fred Kirkpatrick 04/25/2018 11:59 AM) - CONSULTS/PCP/HOSPITALIST Notification #1 *Consult/PCP/Hospitalist*: DARIUS Ortiz- Hospitalist group Time Discussed: 11:00 (Reports will not accept pt until Head CT is done, Dr. Batres agreed.) #2 Consult: Dr. Cagle Time Discussed: 11:40 Consult Disposition: Admit (to hospitalist) #3 Consult: Dr. Woodward Time Discussed: 12:15 Consult Disposition: Admit Procedures - INTUBATION Time of Intubation: 10:03 (150 succinylcholine at 10:02) Airway Evaluation: Abnormal 3-3-2 rule Mallampati Class: 3 Intubation Method: orotracheal Equipment: ETT Tube Size (cm): 7.5 Pretreated with 100% Oxygen?: Yes Breath Sounds after Intubation: equal ETT Primary Tube Confirmation: Capnometry CO2 Change, Direct Visualization, Chest Rise and Fall, Tube placement verified on XRAY Intubation Complications: no complications Vent Settings: See Respiratory Therapy Notes Departure - Departure Date of Disposition Decision: 04/25/18 Time of Disposition Decision: 12:07 DIAGNOSIS: Jaundice Liver failure Qualifiers: Liver failure chronicity: chronic Hepatic coma status: with hepatic coma Qualified Code(s): K72.11 - Chronic hepatic failure with coma Anemia Qualifiers: Anemia type: unspecified type Qualified Code(s): D64.9 - Anemia, unspecified Altered mental status, unspecified Qualifiers: Altered mental status type: unspecified Qualified Code(s): R41.82 - Altered mental status, unspecified Renal failure (ARF), acute on chronic Qualifiers: Acute renal failure type: unspecified Chronic kidney disease stage: unspecified stage Qualified Code(s): N17.9 - Acute kidney failure, unspecified; N18.9 - Chronic kidney disease, unspecified GI bleed Qualifiers: GI bleed type/associated pathology: unspecified gastrointestinal hemorrhage type Qualified Code(s): K92.2 - Gastrointestinal hemorrhage, unspecified Acute respiratory failure Qualifiers: Respiratory failure complication: unspecified whether with hypoxia or hypercapnia Qualified Code(s): J96.00 - Acute respiratory failure, unspecified whether with hypoxia or hypercapnia Disposition: ADMITTED INPATIENT 09 Certified Medical Emergency: Emergent Condition: Critical - Critical Care Note This patient required my direct & personal management of CC.: Yes Total Time (mins): 40 Critical Care Statement: This patient required my direct personal management to treat or rule out processes, the absence of which, could potentiallly result in sudden, clinically significant life or limb threatening deterioration. Attestation - Physician/ ZAIN Attestation Patient care was provided by Advanced Practice Provider:: No The physician spent face to face time with patient:: Yes Advanced Practice Provider documentation review:: Supervising physician onsite and consulted in the evaluation and care of this patient. The physician did have a face to face encounter with the patient. This chart was documented by the indicated scribe, (Chano Calvert Scribe) and accurately reflects the services I performed and decisions made by me, Bautista Batres MD, as attested by the provider's signature.
--- NOTE | 2018-04-25 13:57 | Diag Imaging Result Doc PS360 ---
EXAM: CHEST-PORTABLE 04/25/2018 HISTORY: ett replacement TECHNIQUE: AP portable supine at 1347 COMMENT: There is an endotracheal tube at the thoracic inlet and an NG tube with its tip below the diaphragm. The inspiration is suboptimal. There is minimal subsegmental atelectasis in the right lower lobe. IMPRESSION: Minimal atelectasis. Electronically signed by Fred Kirkpatrick 04/25/2018 1:55 PM
[2018-04-25] MEDS ORDERED: SOLU-CORTEF 100 MG in NS 50 ML IV SCH (14:00)
[2018-04-25] MEDS: NS 1,000 ML IV SCH (14:12)
[2018-04-25] MEDS: PROTONIX 80 MG in NS 80 ML IV SCH (14:13)
[2018-04-25] MEDS: SANDOSTATIN 500 MICROGM in D5W 100 ML IV SCH (14:13)
[2018-04-25] MEDS: DUONEB (A & A) INH SCH ×3 (14:44→23:40)
[2018-04-25 15:01] LABS: UR CREAT RANDOM 136.7 mg/dL (14-26)
[2018-04-25 15:02] LABS: UR UREA NITROGEN RANDOM 411 mg/dL
[2018-04-25 15:03] LABS: UR SODIUM < 10 mmoll
[2018-04-25 15:45] LABS: ALB/GLOB RATIO 0.6; ALBUMIN 1.9 g/dL (3.5-5.0); CALCIUM 7.9 mg/dL (8.8-10.2); CREATININE 2.4 mg/dL (0.7-1.2); POTASSIUM 4.2 mmol/L (3.5-5.1); TOTAL BILIRUBIN 15.33 mg/dL (0.20-1.00); TOTAL PROTEIN 4.9 g/dL (6.3-8.3)
[2018-04-25] MEDS ORDERED: NS 1,000 ML ONE (16:03)
[2018-04-25] MEDS ORDERED: LACTULOSE NG SCH (17:00)
[2018-04-25 17:58] LABS: HEMATOCRIT 21.2 % (42.0-52.0); HEMOGLOBIN 6.7 g/dL (14.0-18.0)
[2018-04-25] MEDS: ALBUMIN 25% IV SCH (18:34)
[2018-04-25] MEDS: ZOSYN 2.25 GM in NS 50 ML IV SCH (19:59)
--- NOTE | 2018-04-25 22:01 | PULMONOLOGY CONSULTATION ---
DATE: 04/25/2018 REQUESTING PHYSICIAN: Dr. Gera Woodward. REASON FOR CONSULTATION: Respiratory failure. HISTORY OF PRESENT ILLNESS: Mr. Cook is a 37-year-old with a history of hepatitis C, history of alcohol abuse with end-stage liver disease and chronic liver failure. He was noticed to be unresponsive by his family at 4:30 in the morning and was subsequently brought to the emergency room by EMS at approximately 10:30 this morning. The patient was intubated on arrival to the emergency room. A head CT scan was performed which revealed no evidence of acute disease. His mother subsequently reported that he should not be resuscitated, and he is now a DO NOT RESUSCITATE. PAST MEDICAL HISTORY/PROBLEM LIST: 1. End-stage liver disease with prior admission to the hospital in hepatic coma. 2. History of variceal bleed with banding, 12/2017. 3. History of alcoholic hepatitis. 4. Hepatitis C with recent negative viral load. 5. Cirrhosis of the liver. 6. Anemia. 7. History of wisdom teeth extraction. SOCIAL HISTORY: Long history of alcohol abuse. Prior history of cannabinoid use. REVIEW OF SYSTEMS: Could not be obtained. FAMILY HISTORY: Noncontributory. PHYSICAL EXAMINATION: General: Reveals a frail, [id number], overly jaundiced white male who appears much older than his stated age of 37. Vital Signs: Blood pressure 95/46. heart rate 92, respiratory rate 10, oxygen saturation 100%. HEENT: Pupils are equal and reactive. Sclerae are jaundiced. Oropharynx appears dry. Neck: Supple. Chest: Reveals coarse rhonchi bilaterally. Cardiac: S1 and S2. Abdomen: Soft. Extremities: Without edema. LABORATORIES: Sodium 131, potassium 4.2, chloride 100, bicarbonate 15, BUN 35, creatinine 3.4. Bilirubin 15.3, AST 58, ALT 31, ammonia 223, albumin 4.9. Globulin fraction 1.9. INR is elevated at 2.6. Arterial blood gas reveals a pH of 7.45, pCO2 of 25, pO2 of 229. Chest x-ray reveals minimal atelectasis at the right lung base. White blood count 5.21, hemoglobin 5.6, platelet count 74,000. IMPRESSION: A 37-year-old with end-stage liver disease, hepatic coma, acute hypoxemic respiratory failure, severe anemia without evidence of bleeding, thrombocytopenia, acute renal failure, protein calorie malnutrition. Etiology for decompensation is not clear, but he has had a chronic elevation in his bilirubin. He is more anemic than at his last hospitalization but currently has had no evidence of acute bleeding. He has had problems with noncompliance in the past, and he may have missed his lactulose dosing. RECOMMENDATIONS: 1. Continue ventilatory support, pending improvement in mental status. 2. Agree with transfusion of blood and plasma. 3. Routine gastric acid suppression. 4. Overall prognosis is poor. Agree with DO NOT RESUSCITATE level I/allow natural . cc: Neo Manrique MD
[2018-04-25] MEDS: NEO-SYNEPHRINE 50 MG in NS 250 ML IV SCH (22:19)
[2018-04-26] MEDS: ALBUMIN 25% IV SCH ×2 (00:10→05:48)
[2018-04-26] MEDS: SANDOSTATIN 500 MICROGM in D5W 100 ML IV SCH ×3 (00:16→18:20)
[2018-04-26 00:50] LABS: HEMATOCRIT 20.2 % (42.0-52.0); HEMOGLOBIN 6.8 g/dL (14.0-18.0)
[2018-04-26] MEDS: NEO-SYNEPHRINE 50 MG in NS 250 ML IV SCH ×4 (02:08→10:24)
[2018-04-26] MEDS: PROTONIX 80 MG in NS 80 ML IV SCH ×3 (02:09→21:52)
[2018-04-26] MEDS: NS 1,000 ML IV SCH ×4 (02:09→21:52)
[2018-04-26] MEDS: ZOSYN 2.25 GM in NS 50 ML IV SCH ×3 (02:52→18:20)
[2018-04-26] MEDS: DUONEB (A & A) INH SCH ×6 (03:54→23:00)
[2018-04-26 04:29] LABS: ALLEN TEST YES; BE -8.3 mmoll (-3.0-3.0); BLOOD TYPE ARTERIAL; HCO3-(ACT) 18.5 mmoll (20.0-26.0); METHB 0.6 % (0.0-1.5); O2(CT) 10.8 mL/dL (15.0-23.0); O2HB 98.3 % (95.0-99.0); PCO2(98.6) 21 mmHg (35-45); PO2(98.6) 207 mmHg (60-100); SAMPLE BLOOD; SAO2 101.6 % (95.0-100.0); SRATE 8 BPM; THB 7.4 g/dL (11.5-17.4); TVOL 500 mL; pH(98.6) 7.45 (7.35-7.45)
[2018-04-26 04:47] LABS: MODALITY VENTILATOR
[2018-04-26 04:55] LABS: INR 3.26; PROTIME 35.5 Seconds (11.0-16.0)
[2018-04-26 04:56] LABS: BASO# 0.02 X1000 (0.0-0.2); BASO% 0.2 % (0.0-0.8); EOS# 0.23 X1000 (0.0-0.7); EOS% 2.4 % (0.0-10.0); HEMOGLOBIN 6.7 g/dL (14.0-18.0); IMM GRAN# 0.04 X1000 (0.0-0.04); IMM GRAN% 0.4 % (0.0-0.5); LYMPH# 0.92 X1000 (1.2-3.4); LYMPH% 9.8 % (20.5-51.1); MCH 34.2 PG (27-31); MCHC 31.9 g/dL (33-37); MCV 107.1 FL (81-99); MONO% 12.7 % (1.7-9.3); MPV 9.7 FL (7.4-10.4); NEUT# 7.02 X1000 (1.4-6.5); NEUT% 74.5 % (42.2-75.2); PLT 77 X1000 (130-400); PTT 59.1 Seconds (22.3-41.8); RBC 1.96 XMIL (4.7-6.1); WBC 9.43 X1000 (4.8-10.8)
[2018-04-26] MEDS: DIPRIVAN 1% 1,000 MG/100 ML BOTTLE IV SCH ×2 (05:00→15:58)
[2018-04-26 05:19] LABS: ALB/GLOB RATIO 1.1; ALBUMIN 2.5 g/dL (3.5-5.0); CALCIUM 8.1 mg/dL (8.8-10.2); CREATININE 2.6 mg/dL (0.7-1.2); MAGNESIUM 2.1 mg/dL (1.5-2.7); POTASSIUM 4.2 mmol/L (3.5-5.1); TOTAL PROTEIN 4.7 g/dL (6.3-8.3)
[2018-04-26 05:47] LABS: BANDS 4 % (0-1); EOS 2 % (1-10); LYMPHS 8 % (21-51); MONO 4 % (1-9); SEGS 82 % (42-75)
[2018-04-26] MEDS: VANCOMYCIN 1.75 GM in NS 250 ML IV SCH (05:48)
--- NOTE | 2018-04-26 07:20 | Diag Imaging Result Doc PS360 ---
EXAM: CHEST-PORTABLE 04/26/2018 HISTORY: intubated TECHNIQUE: AP portable at 0549 COMMENT: There is an NG tube with its tip below the diaphragm and an endotracheal tube with its tip at the thoracic inlet. The inspiration is improved since the previous examination of 04/25/2018. There is some increased density in both lower lobes which may be due to pneumonia and/or pulmonary edema. IMPRESSION: Bronchopneumonia. Electronically signed by Fred Kirkpatrick 04/26/2018 7:18 AM
--- NOTE | 2018-04-26 07:22 | EKG Report ---
Test Performed on : 04/26/2018 07:05:17 AM Test Reason : chest pain Blood Pressure : / mmHG Vent. Rate : 073 BPM Atrial Rate : 073 BPM P-R Int : 122 ms QRS Dur : 076 ms QT Int : 494 ms P-R-T Axes : 018 055 066 degrees QTc Int : 544 ms Normal sinus rhythm. Low voltage QRS Nonspecific ST and T wave abnormality Abnormal ECG When compared with ECG of 25-APR-2018 09:56, (Unconfirmed) Nonspecific T wave abnormality now evident in Anterior leads Confirmed by Gerhard Angeles MD ([id number]) on 04/26/2018 11:35:14 AM
--- NOTE | 2018-04-26 07:26 | EKG Report ---
Test Performed on : 04/25/2018 09:56:48 AM Test Reason : altered mental status Blood Pressure : / mmHG Vent. Rate : 070 BPM Atrial Rate : 070 BPM P-R Int : 156 ms QRS Dur : 084 ms QT Int : 476 ms P-R-T Axes : 028 021 032 degrees QTc Int : 514 ms Normal sinus rhythm. Possible Left atrial enlargement Nonspecific ST abnormality Prolonged QT Abnormal ECG When compared with ECG of 11-FEB-2018 01:06, Nonspecific T wave abnormality, improved in Inferior leads Nonspecific T wave abnormality no longer evident in Anterolateral leads QT has shortened Unconfirmed Result
[2018-04-26] MEDS ORDERED: XIFAXAN PO SCH (09:00)
[2018-04-26] MEDS ORDERED: LACTULOSE PO SCH (09:00)
[2018-04-26] MEDS ORDERED: NS 500 ML IV SCH (09:00)
--- NOTE | 2018-04-26 09:17 | PROGRESS NOTE ---
DATE: 04/26/2018 SUBJECTIVE: Mr. Cook is still sedated. He is intubated. No sign of response. He does not respond to touch and really does not respond to pain. OBJECTIVE: Temperature 97.7, pulse 70, respirations 16, blood pressure is 94/ 38. He is on a max dose of Levophed. It is difficult to keep his blood pressures above 90. His pupils are sluggish but reactive. Lungs are clear, anterolateral. No distended neck veins. Abdomen is soft. Cardiovascular: Regular rhythm and rate. Sinus tachycardia. Urine output has been almost 7 L. Chest x-ray: Bronchopneumonia. NG tube tip below the diaphragm and an endotracheal tube with its tip at the thoracic inlet. Inspiration improved since last x-ray yesterday. Has increased density in both lower lobes which may be due to pneumonia or pulmonary edema. ASSESSMENT AND PLAN: 1. End-stage liver disease. 2. Hepatic coma. 3. Acute hypoxemic respiratory failure. 4. Severe anemia with evidence of bleeding. 5. Thrombocytopenia. 6. Acute renal failure. 7. Protein-calorie malnutrition. His etiology for decompensation is not clear. He was found unresponsive. He has chronic elevation of his bilirubin. He is more anemic than last hospitalization we transfuse. We will continue pressors. He agreed to the DO NOT RESUSCITATE LEVEL. I do not know if we want to add any pressors at this time. We will discuss with Dr. Manrique. Looking over his orders, I do not see any change at this point. He is actually on Phenylephrine maxed dose. He is on Zosyn, vancomycin, and octreotide. We are giving him the lactulose, I believe, in the NG tube. cc: Gera Woodward MD [facility]
[2018-04-26] MEDS ORDERED: NS 500 ML IV ONE (09:45)
[2018-04-26] MEDS: ZOFRAN IV PRN (11:43)
[2018-04-26 12:49] LABS: HEMATOCRIT 21.9 % (42.0-52.0); HEMOGLOBIN 7.1 g/dL (14.0-18.0)
[2018-04-26] MEDS: NEO-SYNEPHRINE 100 MG in NS 500 ML IV SCH ×3 (13:04→22:51)
--- NOTE | 2018-04-26 13:36 | CONSULTATION ---
DATE OF CONSULTATION: 04/25/2018 REASON FOR CONSULTATION: Encephalopathy and anemia. HISTORY OF PRESENT ILLNESS: A 36-year-old gentleman who has been getting progressive unresponsiveness. He had done that in November and February and, at the present time, he has known history of cirrhosis and alcoholic hepatitis and upper gastrointestinal bleed secondary to variceal bleed and they were banded before. Recently, he presented with again unresponsiveness and anemia, but he has not shown any signs of obvious bleeding by history. PAST MEDICAL HISTORY: 1. Upper GI bleed and variceal bleed in December. 2. Alcoholic hepatitis. 3. Cirrhosis. 4. Chronic hepatitis C. 5. Anemia. PAST SURGICAL HISTORY: Nothing significant. [place] tooth removal. SOCIAL HISTORY: Alcoholic with ulcer, hepatitis C. FAMILY HISTORY: Negative. ALLERGIES: None. MEDICATION: 1. Folic acid. 2. Lasix 14. 3. Nadolol 20. 4. Spironolactone 50 daily. 5. Thiamine. REVIEW OF SYSTEMS: Unobtainable. PHYSICAL EXAMINATION: Vital Signs: Temperature 98.2, pulse 94, respiratory 14, blood pressure 131/64. HEENT: PERRLA. The patient is intubated. Lungs: Clear. Heart: Normal first and second heart sounds. Abdomen: Soft. LABORATORY: White count is normal, hemoglobin 5.6, hematocrit 17, albumin 2.5. X-RAY: Endotracheal and NG tube placed. IMPRESSION AND PLAN: 1. Lethargy and possible hepatic encephalopathy. 2. Rule out subacute peritonitis, unlikely. 3. No evidence of bleed, but if he has anemia then we will need to keep the hematocrit above 23. 4. Will cover the hepatic encephalopathy with rifaximin and lactulose. 5. Gastrointestinal prophylaxis. 6. Deep vein thrombosis prophylaxis with sequential compression devices. Supportive care. If there are any signs of bleeding, we will plan on doing endoscopic intervention. We will continue to follow. cc: Rahul Lara MD
[2018-04-26 18:44] LABS: HEMATOCRIT 22.6 % (42.0-52.0); HEMOGLOBIN 7.1 g/dL (14.0-18.0)
[2018-04-27] MEDS: PROTONIX 80 MG in NS 80 ML IV SCH ×3 (00:03→18:01)
[2018-04-27] MEDS: DIPRIVAN 1% 1,000 MG/100 ML BOTTLE IV SCH ×2 (00:11→05:43)
[2018-04-27] MEDS: DUONEB (A & A) INH SCH ×6 (03:05→23:10)
[2018-04-27] MEDS: ZOSYN 2.25 GM in NS 50 ML IV SCH ×3 (03:32→18:00)
[2018-04-27] MEDS: SANDOSTATIN 500 MICROGM in D5W 100 ML IV SCH ×2 (03:32→14:47)
[2018-04-27 04:30] LABS: ALLEN TEST YES; BE -9.5 mmoll (-3.0-3.0); BLOOD TYPE ARTERIAL; HCO3-(ACT) 17.6 mmoll (20.0-26.0); METHB 0.9 % (0.0-1.5); O2(CT) 9.4 mL/dL (15.0-23.0); PCO2(98.6) 24 mmHg (35-45); PO2(98.6) 173 mmHg (60-100); SAMPLE BLOOD; SAO2 101.1 % (95.0-100.0); SRATE 8 BPM; THB 6.5 g/dL (11.5-17.4); TVOL 500 mL; pH(98.6) 7.39 (7.35-7.45)
[2018-04-27 04:31] LABS: MODALITY VENTILATOR
[2018-04-27] MEDS: NEO-SYNEPHRINE 100 MG in NS 500 ML IV SCH ×2 (04:56→15:05)
[2018-04-27] MEDS: NS 1,000 ML IV SCH ×3 (05:46→22:11)
--- NOTE | 2018-04-27 07:07 | Diag Imaging Result Doc PS360 ---
EXAM: CHEST-PORTABLE 04/27/2018 HISTORY: vent pt TECHNIQUE: AP portable at 0540 COMMENT: There is opacification in the left lower lobe which is worse than on 04/26/2018. The inspiration is also less optimal and there is some perihilar opacity bilaterally. The endotracheal and NG tubes remain in place. IMPRESSION: Worsened pneumonia left lower lobe. Electronically signed by Fred Kirkpatrick 04/27/2018 7:05 AM
[2018-04-27] MEDS ORDERED: RID LICE KILLING SHAMPOO TOP ONE (09:55)
--- NOTE | 2018-04-27 10:16 | PROGRESS NOTE ---
DATE: 04/27/2018 SUBJECTIVE: His blood pressure has come up. He still intubated. He appears comfortable. He is sedated. He was questioned on whether there are some nits in his hair, so we are going to treat him with Promethium for potential lice. OBJECTIVE: Vital Signs: Temperature 97.1 degrees, pulse 69, respirations 9, blood pressure 146/55. Eyes: Pupils are equal. Lungs: Clear in all lung ellis. Cardiovascular exam: Regular rhythm and rate without murmur or S3. Abdomen: Soft. Skin: Warm and dry. : Urine output is over 8 L. IMAGING STUDIES: Chest x-ray: Worsening pneumonia in the left lower lobe. ASSESSMENT AND PLAN: 1. Lethargy, possible hepatic encephalopathy. Rule out subacute peritonitis, which is unlikely. Will continue present antibiotics. His blood pressure is coming up. 2. Hypotension. 3. Found unresponsive. There is no evidence of a bleed and his blood counts remain stable. 4. Anemia. Hematocrit above 23. 5. History of hepatitis C, history of alcoholic hepatitis and portal hypertension. He also has a history of a variceal bleeds in the past. Blood pressure seems to be improving. Will continue his present antibiotics, which are vancomycin and Zosyn. We will treat him with some Promethium, 1 application, although we are not definitive that he has lice, but there were some questionable nits in his hair .I do not see any other changes at this point. cc: Gera Woodward MD
[2018-04-27] MEDS: ATIVAN IV PRN (12:54)
[2018-04-27] MEDS: VANCOMYCIN 1.75 GM in NS 250 ML IV SCH (14:47)
--- NOTE | 2018-04-27 20:13 | OPERATIVE NOTE ---
PROCEDURE DATE: 04/27/2018 PREOP DIAGNOSIS: 1. Cirrhosis. 2. Hemodynamic instability. POSTOP: 1. Cirrhosis. 2. Hemodynamic instability. PROCEDURE PERFORMED: Ultrasound-guided right femoral vein triple-lumen catheter placement. ESTIMATED BLOOD LOSS: 20 mL. SPECIMENS: None . OPERATIVE FINDINGS: Ultrasound right femoral vein showed compressible vein with no thrombus. OPERATIVE NOTE: Line was placed emergently given his hemodynamic instability and poor access. His right groin was prepped chlorhexidine solution draped usual fashion. After time-out focused ultrasound right groin with above findings. The vein was accessed on first pass. Dark nonpulsatile venous blood was noted on return. The wire threaded easily was confirmed to course directly into the vein. Skin devon was made. The tract was dilated. We did have to exchange this for Glidewire but a triple-lumen catheter was advanced and the wire was removed and secured to the skin level. All ports withdrew blood and flushed without resistance. Dressing was applied. He tolerated it well. cc: Enrique Shaw MD
[2018-04-28] MEDS: NEO-SYNEPHRINE 100 MG in NS 500 ML IV SCH ×3 (00:30→16:32)
[2018-04-28] MEDS: SANDOSTATIN 500 MICROGM in D5W 100 ML IV SCH ×3 (00:30→23:52)
[2018-04-28] MEDS: DUONEB (A & A) INH SCH ×6 (03:10→23:00)
[2018-04-28] MEDS: PROTONIX 80 MG in NS 80 ML IV SCH (04:27)
[2018-04-28] MEDS: ZOSYN 2.25 GM in NS 50 ML IV SCH ×3 (04:27→18:02)
[2018-04-28 05:19] LABS: ALLEN TEST YES; BE -10.8 mmoll (-3.0-3.0); BLOOD TYPE ARTERIAL; HCO3-(ACT) 16.5 mmoll (20.0-26.0); METHB 0.9 % (0.0-1.5); O2HB 97.7 % (95.0-99.0); PCO2(98.6) 25 mmHg (35-45); PO2(98.6) 152 mmHg (60-100); SAMPLE BLOOD; SAO2 101.1 % (95.0-100.0); SRATE 8 BPM; THB 6.3 g/dL (11.5-17.4); TVOL 500 mL; pH(98.6) 7.35 (7.35-7.45)
[2018-04-28 05:21] LABS: MODALITY VENTILATOR
[2018-04-28] MEDS: NS 1,000 ML IV SCH ×2 (06:25→13:08)
[2018-04-28] MEDS: D50W SYRINGE IV PRN (08:20)
--- NOTE | 2018-04-28 08:36 | PROGRESS NOTE ---
DATE: 04/28/2018 SUBJECTIVE: The patient is intubated and sedated. His blood pressure seems to be doing better. PHYSICAL EXAMINATION: Vital Signs: On examination, he remains afebrile. Temperature 97.0 degrees, pulse 80, respirations 18, blood pressure 94/46. His blood pressures have been above 100 most of the time. HEENT: Pupils are equal. Neck: No distended neck veins. Lungs: Clear in all lung ellis. Cardiovascular Examination: Regular rhythm and rate without murmur or S3. Abdomen: Soft. Skin: Warm and dry. Is and Os: Urine output is 8 L. Extremities: Dr. Shaw did put a right femoral vein triple-lumen catheter in place yesterday. ASSESSMENT AND PLAN: 1. Lethargy, hepatic encephalopathy. I do not see evidence of infection such as subacute peritonitis. Continue present regimen of antibiotics. 2. Hypotension. 3. Found unresponsive. He still remains very lethargic. 4. Anemia. Continue to follow. Hematocrit is 22, hemoglobin 7.1 which is stable. 5. History of hepatitis C and alcoholic hepatitis, portal hypertension. 6. History of variceal bleeds in the past. 7. Continue looking over his orders, continue present regimen. Keep him on Zosyn and vancomycin. Blood pressures have improved. cc: Gera Woodward MD
[2018-04-28] MEDS: PROTONIX IV SCH (13:08)
[2018-04-28 15:02] LABS: ALBUMIN 2.1 g/dL (3.5-5.0); CALCIUM 7.3 mg/dL (8.8-10.2); CREATININE 3.4 mg/dL (0.7-1.2); POTASSIUM 3.6 mmol/L (3.5-5.1); TOTAL BILIRUBIN 16.08 mg/dL (0.20-1.00); TOTAL PROTEIN 4.1 g/dL (6.3-8.3)
[2018-04-28] MEDS: VANCOMYCIN 1.75 GM in NS 250 ML IV SCH (18:01)
[2018-04-28] MEDS ORDERED: LEVOPHED 8 MG in D5 1/2 NS 250 ML IV SCH (22:45)
[2018-04-29] MEDS: PROTONIX IV SCH ×2 (02:24→13:42)
[2018-04-29] MEDS: DUONEB (A & A) INH SCH ×6 (03:10→23:30)
[2018-04-29] MEDS: ZOSYN 2.25 GM in NS 50 ML IV SCH ×3 (04:26→18:22)
[2018-04-29] MEDS: NEO-SYNEPHRINE 100 MG in NS 500 ML IV SCH ×5 (04:30→21:03)
[2018-04-29 05:01] LABS: ALLEN TEST YES; BE -12.6 mmoll (-3.0-3.0); BLOOD TYPE ARTERIAL; HCO3-(ACT) 15.1 mmoll (20.0-26.0); METHB 0.5 % (0.0-1.5); O2(CT) 9.6 mL/dL (15.0-23.0); O2HB 98.1 % (95.0-99.0); PCO2(98.6) 23 mmHg (35-45); PO2(98.6) 150 mmHg (60-100); SAMPLE BLOOD; SAO2 101.3 % (95.0-100.0); SRATE 8 BPM; THB 6.7 g/dL (11.5-17.4); TVOL 500 mL; pH(98.6) 7.33 (7.35-7.45)
[2018-04-29 05:02] LABS: MODALITY VENTILATOR
[2018-04-29] MEDS: SANDOSTATIN 500 MICROGM in D5W 100 ML IV SCH ×2 (08:24→18:25)
[2018-04-29 09:15] LABS: INR 3.71; PROTIME 39.3 Seconds (11.0-16.0)
[2018-04-29 09:16] LABS: PTT 72.4 Seconds (22.3-41.8)
[2018-04-29 09:27] LABS: ALB/GLOB RATIO 1.1; ALBUMIN 2.1 g/dL (3.5-5.0); CALCIUM 7.4 mg/dL (8.8-10.2); CREATININE 3.8 mg/dL (0.7-1.2); POTASSIUM 3.7 mmol/L (3.5-5.1); TOTAL BILIRUBIN 16.28 mg/dL (0.20-1.00)
[2018-04-29 09:50] LABS: HEMOGLOBIN 5.5 g/dL (14.0-18.0)
[2018-04-29 09:52] LABS: BASO# 0.01 X1000 (0.0-0.2); BASO% 0.2 % (0.0-0.8); EOS# 0.21 X1000 (0.0-0.7); EOS% 3.3 % (0.0-10.0); HEMATOCRIT 17.4 % (42.0-52.0); LYMPH# 0.68 X1000 (1.2-3.4); LYMPH% 10.7 % (20.5-51.1); MCHC 31.6 g/dL (33-37); MCV 110.8 FL (81-99); MONO# 1.22 X1000 (0.11-0.59); MONO% 19.2 % (1.7-9.3); MPV 9.3 FL (7.4-10.4); NEUT# 4.24 X1000 (1.4-6.5); NEUT% 66.6 % (42.2-75.2); PLT 52 X1000 (130-400); RBC 1.57 XMIL (4.7-6.1); RDW 21.6 % (11.5-14.5); WBC 6.36 X1000 (4.8-10.8)
--- NOTE | 2018-04-29 10:29 | PROGRESS NOTE ---
DATE: 04/29/2018 SUBJECTIVE: Mr. Cook is off sedation. He was responding, moves his head, and seems to understand the conversation. OBJECTIVE: Vital signs: Temp 97.8 degrees, pulse 87, respirations 16. Lungs: Clear in all lung ellis, anterolateral. Cardiovascular: Regular rhythm and rate without murmur or S3. Abdomen: Soft. Skin: Warm and dry. Intake and output: Urine output is 5,300 mL. LAB: White count 6,360, hematocrit is 17, hemoglobin 5.5, platelet count 52,000. Electrolytes: Sodium 137, potassium 3.7, chloride 109, BUN is 50, creatinine 3.8. Blood sugars have been low, 65, 72, 76. ASSESSMENT AND PLAN: 1. Lethargic, hepatic encephalopathy. Suspect possibility of underlying infection, although we have not seen any true evidence of subacute peritonitis. Will continue present antibiotics. 2. Suspect gastrointestinal bleeding. Hemoglobin and hematocrit have dropped. I will give him 2 units of packed red blood cells. 3. Hypertension. Still on pressors. 4. History hepatitis C, alcoholic hepatitis, portal hypertension. Concerned that we are developing full hepatic failure. 5. History of varicocele bleed, some portal hypertension. 6. Nutrition is poor. Evidence of severe protein calorie malnutrition. NG tube in place. Quite a bit of suction. He is on Protonix 40 mg IV q.12. He is on norepinephrine. We are giving him vancomycin and Zosyn. We will give him 2 units of packed red blood cells. Very poor prognosis. cc: Gera Woodward MD
[2018-04-29 10:57] LABS: ANISOCYTOSIS 2+; EOS 4 % (1-10); LYMPHS 10 % (21-51); MONO 18 % (1-9); SEGS 68 % (42-75)
[2018-04-29 10:59] LABS: BURR CELLS OCCASIONAL; LARGE PLATELETS OCCASIONAL
[2018-04-29] MEDS: LACTULOSE NG SCH ×2 (11:45→21:05)
--- NOTE | 2018-04-29 11:56 | PULMONOLOGY PROGRESS NOTE ---
DATE: 04/29/2018 SUBJECTIVE: The patient will not move to voice. He will move to painful stimuli. OBJECTIVE: Vital signs: The patient has been afebrile for the last 24 hours. BP 114/48, heart rate 85, respiratory rate 16, oxygen saturation 100% on mechanical ventilation. HEENT: Sclerae are icteric. Pupils are equal. Oropharynx appears dry. Neck: Supple. Chest: Reveals occasional rhonchi bilaterally. Cardiac: S1, S2. Abdomen: Soft with diminished bowel sounds. Extremities: Reveal 1+ peripheral edema. Skin: Significantly jaundiced. LABORATORIES: Arterial blood gas reveals a pH of 7.33, pCO2 of 23, pO2 of 150. White blood count 6.36, hemoglobin 5.5, platelet count 52,000. Chemistries: Sodium 137, potassium 3.7, chloride 109, bicarbonate 13, BUN 50, creatinine 3.8. Bilirubin 16.28. Total protein 4.0, albumin 2.1. IMPRESSION: A 37-year-old with hepatic encephalopathy, pneumonia, blood loss anemia, protein calorie malnutrition, renal failure, respiratory failure. His prognosis is poor. RECOMMENDATIONS: 1. Anticipate blood transfusion today. 2. Continue current antibiotics. 3. Attempt nutrition with tube feeds. 4. Lactulose for hepatic encephalopathy. 5. Prognosis extremely poor. cc: Neo Manrique MD
--- NOTE | 2018-04-29 13:35 | PROGRESS NOTE ---
DATE: 04/29/2018 SUBJECTIVE: The patient is resting comfortably, sedated and intubated. Currently on pressors and is receiving blood transfusions. His NG tube has changed from bile colored to reddish-brown. However, he has not had any melena. OBJECTIVE: Vitals: Temperature 97.5 degrees, pulse is 90 per minute, breathing of 8 on ventilator, blood pressure is 110/40 on pressors. General appearance: Patient has generalized icterus, responding to painful stimuli as well as when he was responding to questions to nurses. Abdomen: Distended but soft. Bowel sounds are audible. Two to 3+ pitting edema bilateral lower extremities. LABORATORIES REVIEWED: WBC 6.36, hemoglobin is 5.5, hematocrit 17.4, MCV 110.8, platelets 52,000. PT 39.3, INR 3.71, and PTT was 72.4. Sodium 137, potassium 3.7, chloride 109, bicarb is 13, BUN is 50, creatinine 3.8. Total bilirubin 16.28, AST 63, ALT 24 with ammonia of 115. IMPRESSION: 1. Upper gastrointestinal bleed, most likely variceal. However gastritis or portal gastropathy is also possible. He may be oozing or bleeding from the gastric surfaces. PT/INR both are elevated significantly. 2. Anemia secondary gastrointestinal bleed. Hemoglobin and hematocrit is 5.5 and 17.4. The patient is in process of receiving blood transfusion. We will recheck hemoglobin and hematocrit and keep within acceptable range. 3. Hepatic encephalopathy, multifactorial. Gastrointestinal bleed may be the precipitating factor. However, he may be drinking as well and has developed what appears to be bronchopneumonia. Lactulose has been and anemia being corrected. He is currently on Sandostatin and proton-pump inhibitor. I would continue the same. 4. Elevated PT and PTT most likely secondary to cirrhosis of the liver. On the last admission, it was very difficult to get it within therapeutic range. Despite fresh-frozen plasmas and vitamin K, coagulopathy could not be corrected. 5. Cirrhosis of the liver secondary to chronic hepatitis C and Ethanol alcohol abuse. From presentation, it appears that he has not stopped drinking yet. He was found disheveled and unconscious. Considering his overall presentation, he carries a poor prognosis. 6. I would wait for him to get overall stabilized before proceeding with any intervention, esophagogastroduodenoscopy. Unless he starts hemorrhaging, actively requiring intervention urgently. In the meantime, continue supportive care. cc: John Giron MD
[2018-04-29] MEDS: D50W SYRINGE IV PRN (19:21)
[2018-04-30] MEDS: PROTONIX IV SCH ×2 (01:20→12:36)
[2018-04-30] MEDS: NEO-SYNEPHRINE 100 MG in NS 500 ML IV SCH ×4 (02:14→22:50)
[2018-04-30] MEDS: ZOSYN 2.25 GM in NS 50 ML IV SCH ×3 (02:54→18:06)
[2018-04-30] MEDS: SANDOSTATIN 500 MICROGM in D5W 100 ML IV SCH ×4 (03:04→16:21)
[2018-04-30] MEDS: DUONEB (A & A) INH SCH ×6 (03:35→23:44)
[2018-04-30 04:46] LABS: ALLEN TEST YES; BLOOD TYPE ARTERIAL; O2(CT) 10.8 mL/dL (15.0-23.0); O2HB 97.5 % (95.0-99.0); PO2(98.6) 147 mmHg (60-100); SAMPLE BLOOD; THB 7.6 g/dL (11.5-17.4); pH(98.6) 7.34 (7.35-7.45)
[2018-04-30 04:47] LABS: MODALITY VENTILATOR; PCO2(98.6) 19 mmHg (35-45)
[2018-04-30] MEDS: LACTULOSE NG SCH ×2 (08:54→22:50)
--- NOTE | 2018-04-30 09:15 | Diag Imaging Result Doc PS360 ---
EXAM: CHEST-PORTABLE 04/30/2018 HISTORY: pneumonia TECHNIQUE: AP portable at 0904 COMMENT: There is an endotracheal tube with its tip at the thoracic inlet and an NG tube with its tip below the diaphragm presumably in the stomach. The inspiration is less optimal than on 04/27/2018. There is ill-defined opacity in both lower lung ellis. IMPRESSION: Bibasilar atelectasis and/or pneumonia. Electronically signed by Fred Kirkpatrick 04/30/2018 9:12 AM
[2018-04-30] MEDS: SODIUM BICARBONATE 8.4% IV PUSH SCH ×3 (09:21→22:50)
--- NOTE | 2018-04-30 09:43 | PULMONOLOGY PROGRESS NOTE ---
DATE: 04/30/2018 SUBJECTIVE: The patient is arousable. He will follow commands. He has been on a spontaneous breathing trial overnight. OBJECTIVE: Vital signs: BP 110/52, heart rate 89, respiratory rate 10, oxygen saturation 100%. HEENT: Pupils are equal and reactive. Oropharynx appears clear. Neck: Supple. Abdomen: Reveals good bowel sounds bilaterally. Extremities: Reveal trace/1+ edema. LABORATORIES: CBC and chemistry have been ordered but have not yet been obtained. Chest x-ray reveals bibasilar atelectasis. Arterial blood gas reveals pH 7.34, pCO2 of 19, pO2 of 147. IMPRESSION: A 37-year-old with pneumonia, hepatic encephalopathy, protein calorie malnutrition, renal failure, respiratory failure. He has had some improvement in his mental status. He has tolerated minimal ventilatory support over the last 24 hours. RECOMMENDATIONS: 1. Proceed with extubation. 2. Will give IV bicarbonate for metabolic acidemia. 3. Continue bronchial hygiene. 4. Overall prognosis remains poor. Time Spent critical care: 30+ minutes cc: Neo Manrique MD [facility]
[2018-04-30 10:19] LABS: BASO# 0.01 X1000 (0.0-0.2); BASO% 0.1 % (0.0-0.8); EOS# 0.44 X1000 (0.0-0.7); EOS% 4.7 % (0.0-10.0); HEMATOCRIT 24.3 % (42.0-52.0); HEMOGLOBIN 8.1 g/dL (14.0-18.0); LYMPH# 0.86 X1000 (1.2-3.4); LYMPH% 9.1 % (20.5-51.1); MCH 33.3 PG (27-31); MCHC 33.3 g/dL (33-37); MONO% 19.1 % (1.7-9.3); MPV 9.2 FL (7.4-10.4); NEUT# 6.29 X1000 (1.4-6.5); PLT 52 X1000 (130-400); RBC 2.43 XMIL (4.7-6.1); RDW 24.7 % (11.5-14.5)
[2018-04-30 10:45] LABS: ALBUMIN 2.3 g/dL (3.5-5.0); CALCIUM 7.5 mg/dL (8.8-10.2); CREATININE 4.4 mg/dL (0.7-1.2); POTASSIUM 4.1 mmol/L (3.5-5.1); TOTAL BILIRUBIN 19.27 mg/dL (0.20-1.00); TOTAL PROTEIN 4.5 g/dL (6.3-8.3)
[2018-04-30] MEDS ORDERED: NS 500 ML ONE (11:20)
[2018-04-30 11:37] LABS: EOS 5 % (1-10); LYMPHS 4 % (21-51); MONO 13 % (1-9); SEGS 77 % (42-75)
[2018-04-30 11:38] LABS: ANISOCYTOSIS 1+; BURR CELLS 1+
--- NOTE | 2018-04-30 12:28 | PROGRESS NOTE ---
DATE: 04/30/2018 SUBJECTIVE: Patient does arouse. He is off of sedation. He does follow commands. He nods to questions. Per nurse report, he may be extubated today. There has been no reported active GI bleeding overnight. NG tube is clamped. OBJECTIVE: Vital Signs: Temperature 97.1 degrees, pulse 96, respirations 12 blood pressure 105/46. General examination: Generally, the patient does rouse and follows simple commands. He is intubated on mechanical ventilation with plans for possible extubation today. Abdomen: Soft. Positive bowel sounds. LABORATORY: Hematology: WBC 9.40, hemoglobin 8.1, hematocrit 24.3, MCV 100.0. He has received 4 units of packed red blood cells and 1 unit of fresh frozen plasma. Chemistry: Sodium 140, potassium 4.1, chloride 112, CO2 13. BUN 54, creatinine 4.4, total bilirubin 19.27, AST 67, ALT 26, alkaline phosphatase 78. ASSESSMENT AND PLAN: 1. Respiratory failure on mechanical ventilation with possible extubation today. 2. Hypotension on vasopressors. 3. Anemia related to recent gastrointestinal bleeding. He has receive packed red blood cells and fresh frozen plasma. Will continue to monitor for active bleeding and continue to monitor sterile hemoglobin and hematocrit results. 4. Hepatic encephalopathy. Continue current medications. 5. Cirrhosis of the liver related to chronic hepatitis C and alcohol abuse. I believe the patient has continued to drink. He has a poor prognosis. He has been in the hospital on multiple occasions found unresponsive and in respiratory failure. We will continue to follow during his hospital course, and further plans to be made according to progress. I have discussed this case with Dr. Giron. Dictated by DARIUS Samules for John Giron MD cc: DARIUS Holland MD [facility]
[2018-04-30] MEDS: ZOFRAN IV PRN (12:36)
[2018-04-30] MEDS ORDERED: VITAMIN K SUBQ ONE (13:57)
[2018-04-30] MEDS ORDERED: PITRESSIN 40 UNIT in NS 100 ML IV SCH (14:00)
--- NOTE | 2018-04-30 14:18 | PROGRESS NOTE ---
DATE: 04/30/2018 SUBJECTIVE: He is doing okay. Awake but still very confused. Uncertain what his baseline level of functioning is. No further bleeding. He has been extubated. OBJECTIVE: Vital signs: Blood pressure 90/57, heart rate of 103, respiratory rate of 15, temperature 98.3 degrees, 97% on 40%. Cardiovascular: Regular rate and rhythm. Pulmonary: Bilateral breath sounds clear to auscultation. GI: Soft, nontender, nondistended. Bowel sounds are positive. Skin: He is jaundiced. LABORATORY DATA: White count is 6, hemoglobin and hematocrit are 5 and 17, platelets 52,000. His last platelets were 52,000. His hemoglobin and hematocrit now are 8 and 24. PROBLEM LIST: 1. Upper gastrointestinal bleed. We will continue to follow hemoglobin and hematocrit. I ordered 2 units of blood, but I think we can hold off on that. I will go ahead and give him 1 unit of platelets though since he is still having bleeding issues. 2. Hepatic encephalopathy. Continue regular medications. We will need lactulose and Xifaxan when he is stable. 3. Shock associated with alcoholic cirrhosis. We will continue to follow closely. 4. Profound metabolic acidosis. Pulmonary is following. He is getting bicarbonate. 5. Hepatitis C, alcoholic hepatitis. Continue to monitor. 6. Severe protein-calorie malnutrition. We need to initiate some IV nutrition since he is not eating and we will continue to follow closely. cc: Phoenix De Jesus MD
[2018-04-30] MEDS: PROTONIX 80 MG in NS 80 ML IV SCH ×2 (14:47→22:59)
[2018-04-30 20:51] LABS: HEMATOCRIT 25.4 % (42.0-52.0); HEMOGLOBIN 8.5 g/dL (14.0-18.0)
[2018-05-01] MEDS: DUONEB (A & A) INH SCH ×6 (03:09→23:25)
[2018-05-01 04:15] LABS: ALLEN TEST YES; BE -12.8 mmoll (-3.0-3.0); BLOOD TYPE ARTERIAL; HCO3-(ACT) 14.9 mmoll (20.0-26.0); METHB 0.8 % (0.0-1.5); O2(CT) 11.3 mL/dL (15.0-23.0); O2HB 95.6 % (95.0-99.0); PCO2(98.6) 24 mmHg (35-45); PO2(98.6) 76 mmHg (60-100); SAMPLE BLOOD; SAO2 100.7 % (95.0-100.0); THB 8.3 g/dL (11.5-17.4); pH(98.6) 7.31 (7.35-7.45)
[2018-05-01] MEDS: NEO-SYNEPHRINE 100 MG in NS 500 ML IV SCH ×3 (04:25→14:30)
[2018-05-01] MEDS: ZOSYN 2.25 GM in NS 50 ML IV SCH ×3 (04:26→18:06)
[2018-05-01 04:27] LABS: MODALITY ROOM AIR
[2018-05-01] MEDS: SANDOSTATIN 500 MICROGM in D5W 100 ML IV SCH ×2 (04:41→11:37)
[2018-05-01 05:55] LABS: ALBUMIN 2.4 g/dL (3.5-5.0); CALCIUM 7.8 mg/dL (8.8-10.2); CREATININE 4.7 mg/dL (0.7-1.2); POTASSIUM 4.1 mmol/L (3.5-5.1); RANDOM VANCOMYCIN 36.5 ug/mL (5.0-80); TOTAL PROTEIN 4.7 g/dL (6.3-8.3)
[2018-05-01 05:56] LABS: MCH 32.9 PG (27-31); MCHC 33.3 g/dL (33-37); MCV 98.8 FL (81-99); MPV 10.2 FL (7.4-10.4); RBC 2.43 XMIL (4.7-6.1); RDW 24.2 % (11.5-14.5); WBC 8.08 X1000 (4.8-10.8)
[2018-05-01 06:28] LABS: TOTAL BILIRUBIN 21.45 mg/dL (0.20-1.00)
--- NOTE | 2018-05-01 07:25 | Diag Imaging Result Doc PS360 ---
EXAM: CHEST-PORTABLE 05/01/2018 HISTORY: respiratory failure TECHNIQUE: AP portable at 0518 COMMENT: There is an NG tube with its tip below the diaphragm. Compared to 04/30/2018 there has been improvement in the pulmonary edema which was present previously. There is still dense opacification in the retrocardiac portion of the left lower lobe. IMPRESSION: Improved pulmonary edema. Electronically signed by Fred Kirkpatrick 05/01/2018 7:23 AM
[2018-05-01] MEDS: LACTULOSE NG SCH ×3 (08:25→16:20)
[2018-05-01] MEDS: PROTONIX 80 MG in NS 80 ML IV SCH ×2 (09:22→19:39)
[2018-05-01] MEDS ORDERED: LASIX IV ONE (10:30)
[2018-05-01] MEDS ORDERED: SODIUM BICARBONATE 8.4% IV ONE (10:31)
[2018-05-01] MEDS: XIFAXAN NG SCH ×2 (10:50→21:08)
--- NOTE | 2018-05-01 11:26 | PROGRESS NOTE ---
DATE: 05/01/2018 SUBJECTIVE: The patient is really in fulminant hepatic failure. In any case, he is responsive, but still very lethargic, inappropriate and very lethargic. OBJECTIVE: Vital Signs: Blood pressure 103/48, heart rate 92, respiratory rate 12; that is now on 2 pressors. Temperature 98 degrees. Afebrile overnight. I's and O's are not great. His urine output that I have seen is 25. He is oliguric significantly, so less than 100 overall. Heart rate 92, respiratory rate 12, blood pressure 103/ 48. Cardiovascular: Regular rate and rhythm. Pulmonary: Rales at the bases. GI: Soft, protuberant. Bowel sounds positive. No pain. Skin: He has 3+ pitting edema in his pedal and anterior tran. He has ecchymoses throughout. He is clearly jaundiced throughout. LABORATORY DATA: White count 8, hemoglobin and hematocrit 8 and 24, platelets 65. The pH is 7.31, pCO2 24, PaO2 76 with a bicarbonate here listed as 15, but on chemistry is 11. His creatinine is up to 4.7. Total bilirubin is 21.45, AST of 72, albumin at 2.4. Ammonia is rising to 202. PROBLEM LIST: 1. Upper gastrointestinal bleed. His hemoglobin and hematocrit has stabilized, but he is not stable enough from Gastroenterology standpoint for endoscopy. 2. Hepatic encephalopathy, which is progressive. He is now on lactulose and I have added Xifaxan. 3. Shock is progressive associated with infection and cirrhosis. He is on 2 different pressors. I think his metabolic acidosis is probably not helping with his level or response to pressors. 4. Metabolic acidosis which may be multifactorial. 5. Azotemia, possibly does have a gap. There are no serum ketones. Ammonia level is also very high. We will initiate bicarbonate and follow. 6. Acute kidney injury is progressive at this point. We feel this is likely oliguric acute tubular necrosis. I do not think he is going to improve. Now, his initial electrolytes on admission showed urine sodium less than 10 which is also consistent with hepatorenal syndrome. Reluctant to give him much more fluid because he is already in bad shape. We will get a Nephrology consultation. I do not know if he will be amenable to dialysis if required and, again, I am not sure if that is going to improve his prognosis considering his renal failure is severe. 7. Hepatitis C, alcoholic cirrhosis. Obviously, he has terminal issues here--coagulopathy, profound encephalopathy, and then progressive shock. I am not sure if he is going to survive this admission. He is a do not resuscitate 1. 8. Severe protein-calorie malnutrition. He is on tube feeds. Continue to follow; Gastroenterology, Pulmonary, and now Nephrology are also following. We will continue to monitor, update family as tolerated. cc: Phoenix De Jesus MD
[2018-05-01] MEDS: SODIUM BICARBONATE 8.4% 150 MEQ in D5W 1,000 ML IV SCH (11:31)
[2018-05-01] MEDS: ZYVOX 600 MG/D5W 600 MG/300 ML IVPB IV SCH (11:31)
[2018-05-01] MEDS: BICITRA NG SCH ×2 (13:07→18:06)
--- NOTE | 2018-05-01 13:19 | PULMONOLOGY PROGRESS NOTE ---
DATE: 05/01/2018 SUBJECTIVE: The patient will arouse with stimulation. He is slow to respond to questions. He is not oriented. OBJECTIVE: The patient remains on Kishore-Synephrine. Vital Signs: Blood pressure 106/60, heart rate 92, respiratory rate 11, oxygen saturation 96% on room air. He has no increased work of breathing. HEENT: Pupils are icteric. Oropharynx appears dry. Neck: Supple. Chest: Reveals coarse rhonchi bilaterally. Cardiac: Regular rate, normal S1, normal S2. Abdomen: Mildly distended. Extremities: Reveal generalized edema. LABORATORY DATA: Arterial blood gas reveals a pH of 7.31, pCO2 24, pO2 76 with a normal lactate. White blood count 8.08, hemoglobin 8.0, platelet count 65,000. Sodium 140, potassium 4.1, chloride 110, bicarbonate 11, BUN 56, creatinine 4.7. IMPRESSION: A 37-year-old with pneumonia, hepatic encephalopathy, end-stage liver disease, renal failure, respiratory failure. He has remained off mechanical ventilation for the last 24 hours but his overall prognosis remains poor. RECOMMENDATIONS: 1. Continue bronchial hygiene. 2. Continue nutrition through NG tube. 3. Supplement serum bicarbonate orally for his renal failure. 4. Overall prognosis remains poor. cc: Neo Manrique MD
--- NOTE | 2018-05-01 13:38 | PROGRESS NOTE ---
DATE: 05/01/2018 SUBJECTIVE: Patient is awake, he is still somewhat lethargic but he does answer my questions. OBJECTIVE: Vital Signs: Temperature 98.0, pulse 95, respirations 12 blood pressure 115/63. Generally: Patient was extubated yesterday. He does arouse. He is lethargic but does answer my questions. HEENT: He has an NG tube and tube feeding infusing. Abdomen: Obese but soft and nontender. LABORATORY: Hematology WBC 8.08, hemoglobin 8.0, hematocrit 24.4. Chemistry: Sodium 140, potassium 4.1, chloride 110, CO2 11, BUN 56, creatinine 4.7, glucose 73, total bilirubin 21.45, AST 72, ALT 29, alkaline phosphatase 82, ammonia 202. ASSESSMENT AND PLAN: 1. Recently found unresponsive requiring mechanical ventilation. He has been extubated yesterday. 2. Liver failure related to cirrhosis of the liver, hepatitis C and alcohol abuse. Patient has admitted to continuing to drink alcohol at home. 3. Hepatic encephalopathy. Continue lactulose. Xifaxan has been added. 4. Acute kidney injury. 5. Hepatitis C. Alcoholic cirrhosis of the liver. Patient has poor prognosis. He continues to drink. He has been made a DNR 1 and he has been sent home on hospice after last hospitalization. 6. We will continue to follow along, monitor for any further active bleeding. Monitor hemoglobin and hematocrit. Further plans to be made as needed. I have discussed this case with Dr. Giron. Dictated by DARIUS Samuels for John Giron MD cc: DARIUS Holland MD
[2018-05-01] MEDS ORDERED: NS 500 ML IV SCH (15:00)
[2018-05-01] MEDS ORDERED: MISC. PHARMACY COMMUNICATION SCH (15:30)
[2018-05-01 15:32] LABS: UR PROT RANDOM 153.8 mg/dL
[2018-05-01 15:38] LABS: UR CREAT RANDOM 138.3 mg/dL (14-26)
[2018-05-01] MEDS: NS 500 ML IV SCH (15:47)
[2018-05-01] MEDS: ALBUMIN 25% IV SCH (16:20)
--- NOTE | 2018-05-01 16:21 | Diag Imaging Result Doc PS360 ---
EXAM: US ABDOMEN-COMPLETE 05/01/2018 HISTORY: with portal pressures TECHNIQUE: Abdominal ultrasound COMMENT: The visualized portion of the pancreas is unremarkable. There is ascites. There is antegrade flow in the portal vein. The liver is hyperechoic and somewhat nodular in contour. The aorta is not well demonstrated. The right kidney is 14.1 x 6.2 x 6.1 cm without evidence of hydronephrosis or mass. The left kidney is not demonstrated. The spleen is not enlarged. The gallbladder is not identified. There is no evidence of biliary dilatation the common bile duct measuring 5 mm. IMPRESSION: Suboptimal study. Ascites. Probable cirrhosis. Electronically signed by Fred Kirkpatrick 05/01/2018 4:19 PM
[2018-05-01] MEDS: NEO-SYNEPHRINE 100 MG in NS 250 ML IV SCH (19:39)
[2018-05-02] MEDS: BICITRA NG SCH ×4 (01:31→18:02)
[2018-05-02] MEDS: SANDOSTATIN 500 MICROGM in D5W 100 ML IV SCH ×4 (01:31→22:59)
[2018-05-02] MEDS: NEO-SYNEPHRINE 100 MG in NS 250 ML IV SCH ×4 (01:31→21:59)
[2018-05-02] MEDS: ZYVOX 600 MG/D5W 600 MG/300 ML IVPB IV SCH ×3 (01:31→23:22)
[2018-05-02] MEDS: SODIUM BICARBONATE 8.4% 150 MEQ in D5W 1,000 ML IV SCH ×2 (01:32→18:02)
[2018-05-02] MEDS: ZOSYN 2.25 GM in NS 50 ML IV SCH ×3 (03:39→18:03)
[2018-05-02 04:38] LABS: ALLEN TEST YES; BLOOD TYPE ARTERIAL; HCO3-(ACT) 15.6 mmoll (20.0-26.0); METHB 0.8 % (0.0-1.5); O2(CT) 10.9 mL/dL (15.0-23.0); O2HB 95.9 % (95.0-99.0); PCO2(98.6) 30 mmHg (35-45); PO2(98.6) 79 mmHg (60-100); SAMPLE BLOOD; SAO2 100.9 % (95.0-100.0); pH(98.6) 7.27 (7.35-7.45)
[2018-05-02 04:39] LABS: MODALITY ROOM AIR
[2018-05-02] MEDS: DUONEB (A & A) INH SCH ×6 (04:59→23:38)
--- NOTE | 2018-05-02 05:33 | NEPHROLOGY CONSULTATION ---
DATE: 05/01/2018 DATE OF ADMISSION: 04/25/2018. REASON FOR ADMISSION: Unresponsiveness, with respiratory failure. DATE OF CONSULT: 05/01/2018. REASON FOR CONSULT: Acute kidney injury, with oliguria. HISTORY OF PRESENT ILLNESS: Mr. Cook is a 37-year-old white male, with known hepatitis C, history of alcohol abuse, with end-stage liver disease. He has chronic liver failure, chronic ascites, chronic portal hypertension, and cirrhosis. The patient has had a history of upper GI bleed, with previous varices banding in 2018. The patient was noted to be unresponsive by his mother at 4:30 a.m. on 04/25/2018. Patient subsequently had EMS called. He was brought to [facility] Emergency Department. He was intubated upon arrival. Head CT was performed, which revealed no evidence of acute disease. The patient has subsequently been in the ICU for further workup and evaluation. He remained ventilator-dependent until yesterday, at which time he was weaned off the breathing machine. He is currently on room air. During this period of time, in this hospitalization, he has been started on pressor support medications, which currently include Kishore- Synephrine and vasopressin. According to the nurse, he is almost maxed out on these medications, with a blood pressure maintaining in the 90s systolic. The patient is lethargic. He does open his eyes to verbal stimuli. He denies any pain otherwise. Outside of yes and no questions, he is unable to answer. His mother is currently at the bedside. She states that he has not been well, that they are surprised that he survived his last episode of his last hospitalization. He is currently a Do Not Resuscitate level 1 at this time, though she does indicate that she is rethinking of changing this. PAST MEDICAL PROBLEM LIST: Listed as end-stage liver disease, with prior admissions to the hospital in [place], history of variceal bleeds with banding, the last noted on 12/2017, a history of alcoholic hepatitis, hepatitis C with recent negative viral load, cirrhosis of the liver, anemia of chronic disease, history of wisdom teeth extractions, history of acute kidney injury, with recovery in the past. The patient's baseline creatinine is noted to be 0.7 earlier in 2018. Creatinine today is up to 4.7. The patient has only had 15 mL out per his Powell catheter in the last 24 hours, with only 25ml recorded yesterday. SOCIAL HISTORY: He lives with his mother, for a history of cannabinoid and alcohol abuse. FAMILY HISTORY: Negative for kidney failure or kidney disease. ALLERGIES: Listed as no known drug allergies. REVIEW OF SYSTEMS: As best obtained from patient and from mother at the bedside. Currently, negative for fever or chills. Negative for complaints of chest pain. Negative for increased work of breathing. Currently on room air, status post ventilator dependence. He remains hypotensive. Positive for edema. No nausea, vomiting, or diarrhea. PHYSICAL EXAMINATION: Vital Signs: The patient's most recent vital signs: Temperature is 98.8 degrees, blood pressure 98/66, heart rate 94, respirations are 12. He is currently listed as room air. Last recorded saturation is 95%. He has an NG tube to low intermittent suction. He has a Powell catheter in place, with dark tea-colored urine of 15 mL. He has recorded 4,637 in. He is currently 23 L positive in the last 5 days. Labs: Sodium 140, potassium 4.1, chloride 110, CO2 11, BUN 56, creatinine 4.7, glucose 73. His anion gap is 19. Calcium 7.8. Previous albumin of 2.4. White count 8.08, hemoglobin 8, hematocrit 24, platelet count 65,000. ABGs: pH 7.3, CO2 24, PO2 76, bicarb 14.9. This is on room air. His lactate is 1.17. The patient had a random vancomycin level drawn this morning at 36.5 level. This is currently on hold. The patient's IVs currently consist of octreotide, Zyvox, Zosyn, rifaximin, sodium bicarbonate, vasopressin, and Kishore- Synephrine. PHYSICAL EXAMINATION: General: This is a 37-year-old white male. He is currently resting in bed. He appears chronically ill. He is in no acute distress. He is overly jaundiced. Skin: Warm and dry. HEENT: Normocephalic, atraumatic. Conjunctiva has icterus. Sclera jaundice present. These are equal and reactive. Oropharynx is dry. NG tube remains to low intermittent suction. Neck: Supple. Trachea midline. He does have trace JVD in his upright position. Chest: Has coarse breath sounds, with rhonchi bilateral. Currently, on room air. Abdomen: Tight, distended, very tympanic. Hypo bowel sounds. Genitourinary: Powell catheter is in place. Minimal urine out. Extremities: Has 3 to 4+ edema. Integumentary: There are no rashes that are evident, though the patient is severely jaundiced. Neurological: As mentioned above, he remains lethargic. ASSESSMENT AND PLAN: 1. Acute kidney injury. This may be multifactorial. The patient is oliguric. This may actually be hepatorenal. He is currently on octreotide. We will start albumin 50 g x3 days. He remains on Kishore-Synephrine. He has been getting Lasix. Blood pressure is low at this time. We will wait for labs in the morning and re-evaluate. He has a renal ultrasound indicating the right kidney measuring 14.1, left kidney is not visible. He has a fractionated urea score of 9.22%. We did request a CVP at the bedside, indicating that this is 28. There is no indication for intervention at this time. We have discussed possible dialysis treatment with the mother as a possible bridge, though we have emphasized that this is not a cure, and the patient does have a poor outcome. 2. Electrolytes and acid-base balance. Patient remains severely acidotic, with a CO2 of 11. The patient remains on sodium bicarbonate IV, along with Bicitra p.o. to the NG tube. 3. Anemia. This is low, but stable. The patient also has a platelet count of 65,000. The patient has had transfusion of blood and plasma during hospitalization. 4. Fluid volume overload. Patient is 23 L positive in his fluid balance in the last 5 days. He is currently on octreotide. We will request Pharmacy to double concentrate as many medications as they can. CVP of 28. We will continue to monitor his CVP in the next 24-48 hours. 5. DNR level status 1. His overall prognosis is poor. We will abide by the family's wishes. I would like to thank you for allowing us to follow with this patient. Dictated by DARIUS Jacobs for Christopher Crandall MD cc: DARIUS Jacobs MD [facility]
[2018-05-02 06:36] LABS: HEMATOCRIT 23.4 % (42.0-52.0); HEMOGLOBIN 7.9 g/dL (14.0-18.0); MCH 32.9 PG (27-31); MCHC 33.8 g/dL (33-37); MCV 97.5 FL (81-99); MPV 10.1 FL (7.4-10.4); RBC 2.4 XMIL (4.7-6.1); RDW 24.4 % (11.5-14.5); WBC 9.13 X1000 (4.8-10.8)
[2018-05-02 06:41] LABS: INR 2.94; PROTIME 32.7 Seconds (11.0-16.0)
--- NOTE | 2018-05-02 07:10 | Diag Imaging Result Doc PS360 ---
EXAM: CHEST-PORTABLE 05/02/2018 HISTORY: respiratory failure TECHNIQUE: AP portable at 0557 COMMENT: There is an NG tube with its tip in the stomach. The inspiration is less optimal than on 05/01/2018. There continues to be dense retrocardiac opacity. IMPRESSION: Poor inspiration. Atelectasis versus pneumonia left lower lobe. Electronically signed by Fred Kirkpatrick 05/02/2018 7:08 AM
[2018-05-02] MEDS: PROTONIX 80 MG in NS 80 ML IV SCH ×2 (07:30→18:03)
[2018-05-02 07:45] LABS: CALCIUM 8.1 mg/dL (8.8-10.2); CREATININE 4.7 mg/dL (0.7-1.2); POTASSIUM 3.7 mmol/L (3.5-5.1)
[2018-05-02] MEDS: ALBUMIN 25% IV SCH (08:16)
[2018-05-02] MEDS: LACTULOSE NG SCH ×3 (08:16→17:45)
[2018-05-02] MEDS: XIFAXAN NG SCH ×2 (08:16→21:09)
--- NOTE | 2018-05-02 10:01 | PROGRESS NOTE ---
DATE: 05/02/2018 OVERNIGHT: No acute events except for episodes of hypotension, where recorded blood pressures were in 70s to 40s, though he was on pressors and it was adjusted. He was also tachycardic with pulse in 90s to 100s. SUBJECTIVE: The patient appears drowsy, but arousable. He is able to follow simple commands, however, cannot engage in meaningful conversation. Sometimes he answers incoherently. There is a canister with coffee-ground suctioning, which I was informed by the nurse that is about 2-days old, and the patient was off suction for the last 2 days. There was nothing recorded in NG tube output since April 29, 2018, though. The patient had pulled out his NG tube a little bit overnight, and he underwent chest x-ray examination today morning, which suggested poor inspiration, left lower lobe pneumonia, and nasogastric tube was well in position. VITALS: Currently, patient has been afebrile with temperature of 97.7 degrees, pulse 95 per minute, blood pressure 120/56, with MAP of 86 on pressors, saturating 96% on room air. OBJECTIVE: General: Appears edematous with anasarca. Bilateral scleral jaundice. No pallor. Oral cavity appears moist. Lungs: Air entry bilaterally equal. No wheeze, rhonchi. Bilateral lower lobe crackles. Cardiovascular: S1, S2 normal. No murmur, rub, or gallop. Abdomen: Severe abdominal wall edema to the point that the palpation of abdomen was restricted. He also appears to have ascites. Extremity: Edema affecting bilateral upper and lower extremities. He has scrotal edema as well. He has a Powell catheter. Neurologic: He is drowsy, but arousable. He appears to understand my commands and follows all simple commands like raising his arms, opening his mouth. However, physical examination is restricted as it could not cooperate completely. LABS: Today suggestive of hemoglobin of 7.9, platelet count of 50,000. His INR remains elevated to 2.9. His ABG suggestive of severe metabolic acidosis. BMP suggestive of low bicarbonate, persistently elevated BUN and creatinine with acute renal failure. Microbiology: Blood culture on the 25 of April had grown coagulase-negative Staphylococcus aureus. REPORTS: No new reports today. ASSESSMENT AND PLAN: 1. Upper gastrointestinal bleed on presentation. Possible differentials include esophageal- variocele bleed versus portal gastropathy versus other. Currently, hemoglobin is stable. He has not undergone esophagogastroduodenoscopy considering his critical condition so far. He is status post 5 packed red blood cells, 1 platelet and 1 fresh-frozen plasma. Continue pantoprazole drip for his severe anemia. Continue octreotide drip. 2. Hepatic encephalopathy from chronic hepatitis C, alcoholic liver cirrhosis. Continue lactulose and rifaximin. His condition is critical. 3. Septic shock from bilateral lower lobe pneumonia. Continue intravenous linezolid and Zosyn. Continue phenylephrine. He is off vasopressin now. Will add norepinephrine in future as tolerated and required. 4. Acute tubular necrosis leading to acute kidney injury that could be a component of hepatorenal syndrome. This has led to severe metabolic acidosis. Continue Bicitra. Continue bicarbonate drip. Nephrology on board. 5. Coagulopathy, likely because of alcoholic liver cirrhosis. 6. Severe protein energy malnutrition. Continue tube feeds as tolerated. 7. Acute respiratory failure and unresponsiveness on presentation requiring mechanical ventilation. He was extubated on April 30, 2018. Continue close monitoring of his respiratory status in ICU. 8. Disposition. The patient's condition is too critical. More than 30 minute of critical care time was spent in taking care of this patient. Plan of care were discussed with the nursing. The patient's mother was at bedside. Plan of care were discussed with the patient's mother as well. I informed her about patient's really critical condition and poor prognosis. I answered all of her questions. The patient's mother confirmed that his code status is do not resuscitate level 1. All of her questions were answered. cc: Cesar Gray MD
[2018-05-02] MEDS ORDERED: MISC. PHARMACY COMMUNICATION SCH (12:00)
--- NOTE | 2018-05-02 15:11 | NEPHROLOGY PROGRESS NOTE ---
DATE: 05/02/2018 TIME SEEN: 0730. SUBJECTIVE: Mr. Cook is resting quietly in bed. He is awake. He remains nonverbal. OBJECTIVE: His most recent vital signs temperature 97.7, blood pressure 123/56 , heart rate 97, respirations are 12 to 14. He is on room air. Last recorded saturation 96%. He has an NG tube that currently has tube feedings infusing. He has had 3499 in. He has only had 68 mL out to Powell catheter. He remains 26 L positive. CVP has not been recorded this a.m. LABS: Sodium is 141, potassium 3.7, chloride 108, CO2 of 14, BUN 58, creatinine 4.7, glucose 146. The patient's anion gap is 19, calcium is 8.1. White count 9.13, hemoglobin 7.9 , hematocrit 23.4 with a platelet count of 50. His ProTime is 32.7 with an INR of 2.94. ABGs: pH 7.27, CO2 of 30, pO2 of 79, bicarb 15.6. Patient has a lactate of 2.5. He is on room air. PHYSICAL EXAMINATION: General: This is a 37-year-old, white male. He is currently resting quietly in bed. He appears chronically ill. No acute distress. Skin: Warm and dry. HEENT: Normocephalic, atraumatic. Conjunctiva is jaundiced. He has ZAC. Mucous membranes are dry. NG tube remains in contact with tube feedings infusing of Nepro. Neck: Supple. Trachea midline. He has negative JVD. Cardiovascular: He is regular rate and rhythm. He is tachycardic on the monitor. He has an S4 that is present. Lungs: Shallow inspiratory effort. He has faint rhonchi on inspiration. Remains on room air. Abdomen: Large, distended, tympanic. Hypo bowel sounds. Genitourinary: Powell catheter is in place. Minimal urine out, dark tea- colored urine. Extremities: Continuous 3 to 4+ lower extremity edema. Integumentary: No rashes or lesions evident. He does continue severely jaundiced. Neurological: As mentioned above, awake, non verbal. ASSESSMENT AND PLAN: 1. Acute kidney injury. Again, this is multifactorial. This appears to be hepatorenal syndrome. He remains on octreotide with albumin 50 g x3 days. He does remain on Kishore- Synephrine and vasopressin. His Lasix has been held. Blood pressure remains fairly stable. At this time he remains 26 L positive. We will have to discuss with family in regards with possible initiation of hemodialysis in the next 24 to 48 hours. 2. Electrolytes, acid-base balance. Patient remains severely acidotic, both gap and non anion gap acidosis. He remains on sodium bicarb drip and also Bicitra through his NG tube. 3. Fluid volume overload, 26 L positive. Again, patient is on albumin to help with displacement. We await CVP to be drawn and checked every shift. 4. Do Not Resuscitate status level 1. The patient does have poor prognosis. At this time, we will abide by any family wishes for possible hemodialysis. Dr. Crandall will have this discussion hopefully within the next 24 hours. I would like to thank you for allowing us to follow with this patient. I spoke with Mack. The patient is not a liver transplant candidate. Very poor prognosis in the short term related to his liver. As such he is not a dialysis candidate. rg Dictated by DARIUS Jacobs for Christopher Crandall MD Face to face encounter, data reviewed, discussed with Kong Gupta on . I agree with the above assessment and plan of care. rg cc: DARIUS Jacobs MD [facility]
[2018-05-02] MEDS: NS 500 ML IV SCH (15:55)
--- NOTE | 2018-05-02 18:36 | PROGRESS NOTE ---
DATE: 05/02/2018 SUBJECTIVE: Patient is less responsive today. He does have eyes open, but gazes over to the side. He has followed some commands, but is not as alert as he was yesterday. Continues to have low blood pressure and is on vasopressors. He has also been evaluated by Nephrology for acute kidney injury. There has been discussion of possible hemodialysis, but I believe family wishes to not proceed with any heroic measures. He has been a NO CODE BLUE, LEVEL 1. Previous hospitalization he was sent home on hospice. The mother knows of the poor prognosis. OBJECTIVE: Vital Signs: Temperature 97.9 degrees, pulse 100, respirations 12, blood pressure 98/77. General: Patient has eyes open, but he is not answering questions as he did yesterday. Abdomen: Full with ascites noted. Tender with palpation. LABORATORY: Hematology: WBC 9.13, hemoglobin 7.9, hematocrit 23.4, MCV 97.5. Chemistry: Sodium 141, potassium 3.7, chloride 108, 8 BUN 58, creatinine 4.7. ASSESSMENT AND PLAN: 1. Recent gastrointestinal bleeding. There has not been any evidence of active GI bleeding over the last several days. He has received packed red blood cells and fresh frozen plasma since admission. 2. Hepatic encephalopathy. 3. Acute kidney injury. Nephrology following. 4. Coagulopathy related to cirrhosis of the liver. 5. Acute respiratory failure. Patient has been extubated. 6. Cirrhosis of the liver, liver failure, history of hepatitis C and alcohol abuse. Patient has poor prognosis. We will continue to follow along and be available. Further plans will be made according to his progress. The family is aware of his poor prognosis and he is a NO CODE BLUE, LEVEL 1. I have discussed this case with Dr. Giron. Dictated by DARIUS Samuels for John Giron MD cc: DARIUS Holland MD
--- NOTE | 2018-05-02 19:34 | PULMONOLOGY PROGRESS NOTE ---
DATE: 05/02/2018 SUBJECTIVE: The patient is awake. He will not follow commands. OBJECTIVE: Blood pressure 96/79. Heart rate 101. Respiratory rate 13. Oxygen saturation 94% on room air. HEENT: Pupils are equal. Sclerae are icteric. Oropharynx is clear. Chest: Reveals shallow breath sounds without wheezing or rhonchi. Cardiac exam: S1, S2. Abdomen: Soft with diminished bowel sounds. LABORATORY: White blood count 9.13, hemoglobin 7.9, platelet count 50,000. Arterial blood gas: pH 7.27, PCO2 30, PO2 79. Chest x-ray reveals poor inspiration with infiltrate at the base. IMPRESSION: A 37-year-old with: 1. End-stage liver disease. 2. Hepatic encephalopathy. 3. Pneumonia. 4. Renal failure. He remains off mechanical ventilation without increased work of breathing but his prognosis remains poor. RECOMMENDATIONS: 1. Continue bronchial hygiene. 2. Continue Bicitra for renal failure and acidosis. Prognosis remains poor. cc: Neo Manrique MD
[2018-05-03] MEDS: BICITRA NG SCH ×4 (00:58→17:59)
[2018-05-03] MEDS: DUONEB (A & A) INH SCH ×5 (03:40→19:13)
[2018-05-03] MEDS: ZOSYN 2.25 GM in NS 50 ML IV SCH ×5 (03:54→17:59)
[2018-05-03 04:54] LABS: ALLEN TEST YES; BE -9.8 mmoll (-3.0-3.0); BLOOD TYPE ARTERIAL; HCO3-(ACT) 17.1 mmoll (20.0-26.0); PCO2(98.6) 34 mmHg (35-45); PO2(98.6) 65 mmHg (60-100); SAMPLE BLOOD; pH(98.6) 7.28 (7.35-7.45)
[2018-05-03 04:56] LABS: MODALITY ROOM AIR
[2018-05-03 06:00] LABS: INR 3.1; PROTIME 34.1 Seconds (11.0-16.0)
[2018-05-03 06:12] LABS: ALB/GLOB RATIO 1.6; ALBUMIN 2.9 g/dL (3.5-5.0); CREATININE 5.1 mg/dL (0.7-1.2); POTASSIUM 3.4 mmol/L (3.5-5.1); TOTAL PROTEIN 4.7 g/dL (6.3-8.3)
[2018-05-03 06:16] LABS: TOTAL BILIRUBIN 22.23 mg/dL (0.20-1.00)
--- NOTE | 2018-05-03 06:32 | Diag Imaging Result Doc PS360 ---
CHEST-PORTABLE - 05/03/2018 INDICATION: respiratory failure COMPARISON: 05/02/2018 FINDINGS: Stable critically low lung volumes. Stable nasogastric tube in good position. There is slight improvement in the patchy infiltrates or atelectasis in the lung bases. IMPRESSION: Critically low lung volumes. Electronically signed by Wander Alegre 05/03/2018 6:30 AM
[2018-05-03] MEDS: SANDOSTATIN 500 MICROGM in D5W 100 ML IV SCH ×3 (06:52→19:07)
[2018-05-03 07:13] LABS: HEMATOCRIT 23.1 % (42.0-52.0); HEMOGLOBIN 7.5 g/dL (14.0-18.0); MCH 31.9 PG (27-31); MCHC 32.5 g/dL (33-37); MCV 98.3 FL (81-99); MPV 10.4 FL (7.4-10.4); RBC 2.35 XMIL (4.7-6.1); RDW 24.8 % (11.5-14.5); WBC 10.73 X1000 (4.8-10.8)
--- NOTE | 2018-05-03 08:28 | PROGRESS NOTE ---
DATE: 05/03/2018 OVERNIGHT: Overnight, no acute events. He continued to require pressor support. His SpO2's was 90 to 94 percent on room air. SUBJECTIVE: He is awake and alert. Intermittently follows simple commands. Does not engage in meaningful conversation. He appears anasarcic. OBJECTIVE: Vital signs: Afebrile with temperature of 98 degrees, pulse 100 to 110 per minute, blood pressure maintaining MAP of more than 65 on pressors, SpO2 90 to 94 percent on room air. General: On physical examination, he appears a little short of breath when he tries to speak. Bilateral scleral icterus. His skin also appears icteric. HEENT: He also has conjunctival pallor. Oral cavity appears moist. Lungs: Inspiratory crackles bilateral lung ellis diffusely. Cardiovascular: S1, S2 normal. No murmur, rub, or gallop. Abdomen: He has severe abdominal wall edema to the point that palpation of abdomen deep could not be performed. Extremities: Bilateral upper and lower extremity edema and scrotal edema. He has a Powell catheter with almost no urine output. Neurologic: He is awake, alert, appears to understand simple commands and follows them intermittently. LABS: Labs today suggest no leukocytosis. Severe normocytic anemia, severe thrombocytopenia, coagulopathy with elevated INR, metabolic acidosis with increased anion gap, hypokalemia, elevated BUN and creatinine, hyperbilirubinemia. ASSESSMENT AND PLAN: 1. Septic shock from bilateral lower lobe pneumonia. Continue intravenous linezolid, Zosyn, phenylephrine and vasopressin to maintain MAP more than 65. 2. Upper gastrointestinal bleed on presentation. Possible differential includes esophageal variceal bleed versus portal gastropathy versus other upper gastrointestinal causes. Currently progressively declining hemoglobin. We will transfuse to maintain hemoglobin more than 7. He could not undergo esophagogastroduodenoscopy considering his critical condition on multiple pressors and overall poor prognosis. He is status post 5 packed red blood cells, 1 platelet, 1 fresh frozen plasma so far. Continue pantoprazole drip and octreotide drip. 3. Hepatic encephalopathy from chronic hepatitis C, alcoholic liver cirrhosis. Continue lactulose and rifaximin. 4. Acute tubular necrosis leading to acute kidney injury with concomitant hepatorenal syndrome, which is also contributing to his severe metabolic acidosis with elevated anion gap. Continue bicarbonate drip and Bicitra. Nephrology on board. The patient is not a candidate for dialysis considering very poor short-term prognosis. 5. Coagulopathy and hyperbilirubinemia, likely because of alcoholic liver cirrhosis. He is not a candidate of liver transplant considering his critical condition and very poor prognosis according to Gastroenterology. 6. Severe protein calorie malnutrition. Continue tube feeds as tolerated. 7. Acute respiratory failure and unresponsiveness on presentation requiring mechanical ventilation initially. He was extubated on 04/30/2018. Continue close monitoring of respiratory status. 8. Disposition: I will hold discussion of further goals of care with the patient's mom today. We will also appreciate palliative care recommendation. Considering the patient's critical condition, his prognosis is grim. My discussion would be directed towards making him comfort measures only and possibly discussing hospice options with the family. TIME SPENT: More than 30 minutes of critical care time was spent in taking care of this patient. cc: Cesar Gray MD
[2018-05-03] MEDS: ALBUMIN 25% IV SCH (09:52)
[2018-05-03] MEDS: XIFAXAN NG SCH ×2 (09:53→21:38)
[2018-05-03] MEDS: LACTULOSE NG SCH ×3 (09:53→17:59)
[2018-05-03] MEDS: ZYVOX 600 MG/D5W 600 MG/300 ML IVPB IV SCH ×2 (09:55→11:20)
[2018-05-03] MEDS: PROTONIX IV SCH (13:52)
[2018-05-03] MEDS: SODIUM BICARBONATE 8.4% 150 MEQ in D5W 1,000 ML IV SCH (14:01)
--- NOTE | 2018-05-03 14:04 | PROGRESS NOTE ---
DATE: 05/03/2018 SUBJECTIVE: Patient does arouse, although he is lethargic. He did respond to some questions, although limited. OBJECTIVE: Vital Signs: Temperature 98.1 degrees, pulse 103, blood pressure 110/69. General: Patient is resting, aroused, but is lethargic. LABORATORY: Hematology: WBC 10.3, hemoglobin 7.5, hematocrit 23.1, MCV 98.3, platelets 36. Chemistry: Sodium 140, potassium 3.4, chloride 106, CO2 15. BUN 60, creatinine 5.1, glucose 123. Total bilirubin 22.23, AST 62, ALT 30, alkaline phosphatase 73. Ammonia on 05/02/2018 was 180. ASSESSMENT AND PLAN: 1. Sepsis shock with bilateral pneumonia. Patient has been recently extubated. 2. History of upper gastrointestinal bleed. There has been no active bleeding now. Continues to be anemic. He has received blood since admission. 3. Hepatic encephalopathy related to cirrhosis of the liver/liver failure. Continue current medications. 4. Acute kidney injury. Patient has been seen by Nephrology. There has been discussion with the family and they decided not to proceed with dialysis due to poor prognosis. 5. Coagulopathy. Hyperbilirubinemia related to liver cirrhosis. Unfortunately, patient had continued to drink alcohol after his previous hospitalizations. He has very poor quality home environment. He has a poor prognosis. He is not a candidate for liver transplant. There has been discussion about hospice. We will continue to follow along. Unfortunately there are no other recommendations. There has also been discussion of palliative care. Patient's family was not available today during our evaluation. Patient was also seen by Dr. Giron. Dictated by DARIUS Samuels for John Giron MD cc: DARIUS Holland MD
[2018-05-03] MEDS ORDERED: TYLENOL LIQUID PO PRN (14:10)
[2018-05-03] MEDS: ATIVAN IV PRN (14:38)
[2018-05-03] MEDS: NS 500 ML IV SCH (15:37)
--- NOTE | 2018-05-03 18:37 | NEPHROLOGY PROGRESS NOTE ---
DATE: 05/03/2018 SUBJECTIVE: He moans unintelligibly. Eyes are spontaneously open. OBJECTIVE: Vital Signs: Blood pressure 124/70, heart rate 103, respirations 13. Afebrile. General: He is obtunded, jaundiced. No acute distress. Skin: Warm and dry. Conjunctivae are pink. Sclerae are icteric. Neck: Neck veins are not appreciated. Heart: Regular. Lungs: Equal, shallow. No crackles. Abdomen: Distended and soft. Diminished bowel sounds. Extremities: Have 3+ edema. No clubbing or cyanosis. IMPRESSION: Hepatorenal syndrome. No urine output essentially. I had a discussion regarding his case with Dr. Giron on yesterday. He is not a transplant candidate because of ongoing alcohol use. He has a very poor prognosis from the perspective of his liver disease. As such, he is really not a candidate for hemodialysis. I discussed this with his mother and recommended a change in our focus to symptom management. I told her that he was not a dialysis candidate and she understands. I really have nothing further to add so I will sign off but I would be glad to see him again if I can be helpful. cc: Christopher Crandall MD
[2018-05-04] MEDS: DUONEB (A & A) INH SCH ×5 (00:12→19:31)
[2018-05-04] MEDS: ZYVOX 600 MG/D5W 600 MG/300 ML IVPB IV SCH (00:41)
[2018-05-04] MEDS: BICITRA NG SCH ×2 (00:41→06:55)
[2018-05-04] MEDS: SODIUM BICARBONATE 8.4% 150 MEQ in D5W 1,000 ML IV SCH (00:42)
[2018-05-04] MEDS: SANDOSTATIN 500 MICROGM in D5W 100 ML IV SCH (00:42)
[2018-05-04] MEDS: PROTONIX IV SCH ×2 (03:24→15:20)
[2018-05-04] MEDS: ZOSYN 2.25 GM in NS 50 ML IV SCH (03:24)
[2018-05-04 04:47] LABS: ALLEN TEST YES; BE -6.1 mmoll (-3.0-3.0); BLOOD TYPE ARTERIAL; HCO3-(ACT) 20.2 mmoll (20.0-26.0); METHB 1.4 % (0.0-1.5); O2(CT) 9.1 mL/dL (15.0-23.0); O2HB 94.3 % (95.0-99.0); PCO2(98.6) 43 mmHg (35-45); PO2(98.6) 72 mmHg (60-100); SAMPLE BLOOD; SAO2 100.5 % (95.0-100.0); THB 6.8 g/dL (11.5-17.4); pH(98.6) 7.28 (7.35-7.45)
[2018-05-04 04:48] LABS: MODALITY ROOM AIR
[2018-05-04 05:35] LABS: INR 3.72; PROTIME 39.4 Seconds (11.0-16.0)
[2018-05-04 05:49] LABS: ALB/GLOB RATIO 1.6; ALBUMIN 2.8 g/dL (3.5-5.0); CALCIUM 8.1 mg/dL (8.8-10.2); CREATININE 5.1 mg/dL (0.7-1.2); POTASSIUM 3.1 mmol/L (3.5-5.1); TOTAL PROTEIN 4.6 g/dL (6.3-8.3)
[2018-05-04 05:51] LABS: RBC 2.09 XMIL (4.7-6.1)
[2018-05-04 06:21] LABS: TOTAL BILIRUBIN 21.14 mg/dL (0.20-1.00)
[2018-05-04] MEDS ORDERED: VITAMIN K 10 MG in NS 50 ML IV ONE (06:39)
--- NOTE | 2018-05-04 07:01 | Diag Imaging Result Doc PS360 ---
EXAM: CHEST-PORTABLE HISTORY: respiratory failure TECHNIQUE: Portable chest single view COMPARISON: 05/03/2018 FINDINGS: Poor inspiratory effort. The right hemidiaphragm is elevated. The heart remains enlarged. There is mild vascular distention. There is basilar atelectasis or infiltrates. IMPRESSION: No interval improvement Electronically signed by Cristhian Grant 05/04/2018 6:59 AM
[2018-05-04] MEDS: ALBUMIN 25% IV SCH (08:22)
[2018-05-04] MEDS: DILAUDID IV PRN ×2 (08:23→20:49)
--- NOTE | 2018-05-04 10:04 | PROGRESS NOTE ---
DATE: 05/04/2018 SUBJECTIVE: Overnight, the patient had a drop in his hematocrit as well as platelet count. Blood products were ordered which I kept on hold. I had initiated discussion of comfort measures and hospice care with the patient's mother who is next of kin yesterday, and Social Work Team had talked with the patient's mother; however, she was indecisive about making him comfort measures only yesterday, and the patient continue to receive the care in the Critical Care Unit. The patient currently is drowsy though occasionally arousable. He keeps on moaning. He appears tachypneic and using accessory muscles. He does not engage in meaningful conversation. OBJECTIVE: Vital Signs: Temperature 96.7, pulse 104 per minute, blood pressure 116/85, saturation 94% to 96% percent on room air. PHYSICAL EXAMINATION: General: He appears in [id number] distress, generally icteric. Scleral icteric and conjunctival pallor. Air entry decreased bilaterally inframammary region with bilateral inspiratory crackles. No wheeze or rhonchi. Abdomen: He has prominent abdominal wall edema and appears distended and huge. Extreme edema affecting bilateral upper and lower extremities. Neurological: Drowsy, but arousable. Not oriented. LABORATORY DATA: Labs today suggestive of severe anemia with hemoglobin of 6.9, platelet of 18,000. ABG suggestive off metabolic acidosis. BMP suggestive of hypokalemia, elevated BUN, creatinine. Elevated liver enzymes. ASSESSMENT AND PLAN: I had again an extensive discussion about the patient's critical condition with the patient's mother. I explained to the mother about multiorgan failure and that his liver cirrhosis and chronic kidney disease would ultimately culminate in his demise. I presented to the mother and asked her about what kind of care would the patient have wanted if he had to make a decision. On behalf of the patient, his mother decided to make him comfort measures only. I have gone ahead and discontinued all the measures including nasogastric tube, intravenous fluids, and antibiotics and drips, and I have started him on intravenous pain and antianxiety medications to make him comfort measures only. We will transfer patient from ICU to a routine floor. Hospice would also be consulted. I was just informed that considering patient's insurance status, he may not be a candidate of inpatient hospice, and the patient's mother would not like to take him home in this terminal illness to see him in pain at home, so we decided to keep the patient inside the hospital and provide him pain and antianxiety medication. Plan of care was discussed with the patient's mother. All of her questions were answered. cc: Cesar Gray MD
--- NOTE | 2018-05-04 13:34 | PROGRESS NOTE ---
DATE: 05/04/2018 SUBJECTIVE: Events from overnight reviewed. Patient's hemoglobin and hematocrit have dropped further and platelet count. Mental status has also worsened. After discussion with the mother, they have decided to make the patient comfort measures only. He has been transferred to a room. I have spoken with the mother. The patient is less responsive than yesterday. VITAL SIGNS: Temperature 96.7 degrees, pulse 101, respirations 12, blood pressure 114/70. ASSESSMENT AND PLAN: 1. Sepsis. 2. History of respiratory failure. The patient was intubated on admission and he has been extubated now. 3. Hepatic encephalopathy related to liver failure. 4. Acute kidney injury. After discussion with the mother, they have decided not to pursue dialysis due to poor prognosis. 5. Anemia, coagulopathy, hyperbilirubinemia with anemia related to cirrhosis. Unfortunately, patient had continued to drink after his previous hospitalization. He is not a candidate for liver transplant. Unfortunately there are no further recommendations. The patient has been made comfort measures. We will sign off and please re-consult us as needed. I have discussed this case with Dr. Giron. Dictated by DARIUS Samuels for John Giron MD cc: DARIUS Holland MD
--- NOTE | 2018-05-04 15:23 | PULMONOLOGY PROGRESS NOTE ---
DATE: 05/04/2018 SUBJECTIVE: The patient is drowsy but arousible. He has mild increased work of breathing. He is not conversant. The patient has had a drop in hemoglobin and platelet count. He has not had improvement in his liver function study or renal function. End-of-life discussions have been made with the family by the Hospitalist Service and Nephrology. He is not a candidate for dialysis. His management status has been changed to comfort measures only. He will be transferred to the floor. RECOMMENDATIONS: 1. Agree with current comfort measures. 2. No additional pulmonary recommendations. Please call if I can be of help. cc: Neo Manrique MD
[2018-05-05] MEDS: DUONEB (A & A) INH SCH ×7 (01:38→23:37)
[2018-05-05] MEDS: PROTONIX IV SCH ×2 (01:47→14:42)
[2018-05-05] MEDS: DILAUDID IV PRN ×2 (14:46→17:54)
--- NOTE | 2018-05-05 15:07 | PROGRESS NOTE ---
DATE: 05/05/2018 Overnight events. The patient was made comfort care only and was transferred to floor. SUBJECTIVE: He is drowsy. Does not engage in meaningful conversation. Patient 's mother is at bedside and she tells me that the patient looks comfortable to her and does not appear to be in distress. Currently his vitals detect he has been afebrile with temperature of 98.9 degrees, pulse of 90 per minute, respiratory rate of 5 to 10 per minute, blood pressure 102/47, saturating 100% on nasal cannula. OBJECTIVE: Physical examination Reveals he has generalized icterus. Pupils are equal, reacting to light bilaterally. He occasionally opens his eyes to verbal commands. His air entry is bilaterally equal with inspiratory crackles. Abdomen has generalized edema. Extreme edema affecting right upper extremity, lower extremity. He has generalized anasarca. LABS: No new labs today. No new microbiological data. ASSESSMENT AND PLAN: Mr. Cook is 37-year-old man who was initially admitted for septic shock from bilateral lower lobe pneumonia, upper gastrointestinal bleed, hepatic encephalopathy from chronic hepatitis C alcoholic liver cirrhosis and acute tubular necrosis. He was in multiorgan failure requiring intensive care unit admission and intubation. Considering his multiple comorbidities and terminal illness, end of life discussion was held with the patient's mother who is surrogate decision maker. After extensive discussion with the mother, the patient was made comfort measures only. PLAN: Continue PRN acetaminophen, albuterol ipratropium nebulization p.r.n. for shortness of breath. Continue lorazepam IV p.r.n. for anxiety. Continue pantoprazole 40 mg IV q.12 hours which I will start. Continue hydromorphone 1 mg IV q.3 hours p.r.n. Patient appears to be in comfortable state. Plan of care were discussed with mother. I answered all of her questions. cc: Cesar Gray MD [facility]
[2018-05-05] MEDS: ATIVAN IV PRN (17:54)
[2018-05-06] MEDS: DUONEB (A & A) INH SCH ×6 (03:38→23:55)
[2018-05-06] MEDS: ATIVAN IV PRN ×3 (08:50→22:45)
[2018-05-06] MEDS: DILAUDID IV PRN ×4 (08:51→22:40)
--- NOTE | 2018-05-06 13:48 | PROGRESS NOTE ---
DATE: 05/06/2018 OVERNIGHT EVENTS: No acute events. SUBJECTIVE: He is sedated and does not open eyes to verbal commands. However, he appears to be breathing spontaneously. The patient's mother is at the bedside. I asked her if there were any concerns that she had, however, she denies any concerns. She thinks that the patient remains comfortable at the moment. OBJECTIVE: Vital signs: Temperature 98.2 degrees, pulse 95 per minute, respiratory rate anywhere between 5 to 20 per minute, blood pressure 113/65, saturating 94% on 2 L nasal cannula. General: Generalized icterus and generalized anasarca. Pupils round and reactive to light bilaterally. Lungs: Air entry audible in the bilateral supramammary regions, however, decreased air entry audible in the bilateral inframammary regions with inspiratory crackles. No wheeze or rhonchi. Abdomen: Significant abdominal edema and appeared tense. Generalized anasarca. Neurological: He is moving all extremities spontaneously to painful stimuli, and sometimes even without painful stimuli, and does not appear to be in distress. ASSESSMENT: Mr. Cook is a 37-year-old man who was initially admitted for septic shock from bilateral lower lobe pneumonia, upper gastrointestinal bleed, hepatic encephalopathy from chronic hepatitis C and alcoholic liver cirrhosis, and acute tubular necrosis. He was in multiorgan failure requiring intensive care unit admission, intubation and pressors. Considering his multiple comorbidities and terminal illness, end of life discussion was held with the patient's mother who is the surrogate decision-maker. After extensive discussion with mother, the patient was made comfort measures only. PLAN: Continue p.r.n. acetaminophen and albuterol/ipratropium nebulization for shortness of breath. Continue lorazepam IV p.r.n. for anxiety. Continue hydromorphone 1 mg IV q.3 hours p.r.n. for pain. The patient appears to be in a comfortable state. Plan of care was discussed with the mother. I answered all of her questions. The patient previously could not be sent to inpatient hospice as the patient had Medicaid and he did not qualify for it. The patient's mother was not comfortable taking him home on home hospice. cc: Cesar Gray MD
[2018-05-06 19:56] VITALS: BP 66/27
[2018-05-07] MEDS: DUONEB (A & A) INH SCH (05:16)
--- NOTE | 2018-05-08 06:40 | DISCHARGE SUMMARY ---
ADMISSION DATE: 04/25/2018 DISCHARGE DATE: 05/07/2018 ADDENDUM: I was informed by the palliative care team today that overnight the patient had . Causes of are: Hepatic failure, hepatic cirrhosis, ESRD, GI bleed, thrombocytoepenia. cc: Cesar Gray MD MTDD
[2018-05-09 08:16] LABS: HEMATOCRIT 23.7 % (42.0-52.0); HEMOGLOBIN 6.8 g/dL (14.0-18.0); MCH 32.5 PG (27-31); MCHC 28.7 g/dL (33-37); MCV 113.4 FL (81-99); MPV 10.2 FL (7.4-10.4); RDW 27.4 % (11.5-14.5); WBC 8.47 X1000 (4.8-10.8)
--- NOTE | 2018-07-04 04:37 | DISCHARGE SUMMARY ---
ADMISSION DATE: 04/25/2018 DISCHARGE DATE: 05/07/2018 BRIEF HISTORY: The patient had overnight. CAUSE OF : Liver cirrhosis. DISCHARGE DIAGNOSES: 1. due to liver cirrhosis. 2. Septic shock from bilateral lower lobe pneumonia. 3. Upper gastrointestinal bleed. 4. Hepatic encephalopathy. 5. Chronic hepatitis C and alcoholic liver cirrhosis. 6. Acute tubular necrosis. HOSPITAL COURSE SUMMARY: Mr. Cook is a 37-year-old man who was initially admitted for septic shock from bilateral lower lobe pneumonia, upper gastrointestinal bleed, hepatic encephalopathy from chronic hepatitis C and alcoholic liver cirrhosis, and acute tubular necrosis. He was in multiorgan failure requiring intensive care unit admission, intubation and pressors. Later on he was extubated. Considering his multiple comorbidities, multiorgan failure and terminal illness, end-of-life discussion was held with the patient's mother who was the surrogate decision maker. She was explained to about the patient's poor prognosis considering his terminal illness. After extensive discussion with mother, the patient was made comfort measures only. The patient was continued on acetaminophen, ipratropium nebulization, antianxiety medication and opioids for pain. His pain and discomfort were addressed during hospitalization. Previously the patient could not be sent to inpatient as he had Medicaid and he did not qualify for it, and the patient's mother was not comfortable taking him home on home hospice. During hospital admission he was made comfortable and on 05/07/2018 he . TIME SPENT: Less than 30 minutes were spent in preparing this discharge summary. cc: Cesar Gary MD
== END 2018-05-07 02:37 | disposition expired | DRG 870 ==
LOC: ED 09:55 → SUATTDRO 12:41 → ICU 12:41 → 3N 05-04 10:33
PROVIDERS: ATTEND Internal Medicine
CPT/HCPCS: 31500; 36430; 51702; 70450; 71010; 71045; 76700; 80048; 80053; 80101; 80202; 80301; 80307; 80320; 80324; 80345; 80346; 80353; 80358; 80361; 80365; 81001; 82055; 82140; 82550; 82553; 82570; 82805; 82948; 83605; 83735; 83992; 84156; 84300; 84443; 84484; 84540; 85014; 85018; 85025; 85027; 85610; 85730; 86850; 86900; 86901; 86920; 87040; 87205; 89220; 93005; 93010; 94003; 94640; 94761; 96361; 96365; 96366; 96368; 96375; 99285; 99291; A9270; C9113; G0431; G0434; G0479; G0480; G6040; J0330; J1170; J1940; J2020; J2060; J2354; J2370; J2405; J2543; J3370; J3430; J7030; J7040; J7050; J7060; J7070; P9016; P9017; P9035; P9047; S0164; XXXXX